=== PATIENT | female | born 1985 | race Caucasian/White ===

== ENCOUNTER → 2017-11-22 14:29 | Outpatient (CLI) | payer OTHER, SELFPAY ==
[2017-11-22 15:19] LABS: Amphetamine Urine VISTA NEGATIVE (<1000 ng/mL); Barbiturate Urine VISTA NEGATIVE (< 200 ng/mL); Benzodiazepine Urine VISTA NEGATIVE (< 200 ng/mL); Cocaine Urine VISTA NEGATIVE (< 300 ng/mL); Ecstacy Urine VISTA NEGATIVE (< 500 ng/mL); Methadone Urine VISTA NEGATIVE (< 300 ng/mL); PCP Urine VISTA NEGATIVE (< 25 ng/mL); THC Urine VISTA NEGATIVE (< 50 ng/mL); Vista UDS pH Range 5
== END ==
PROVIDERS: Visit Provider Anesthesiology Pain Medicine
DX: S83.92XA Sprain of unspecified site of left knee, initial encounter (principal); M65.862 Other synovitis and tenosynovitis, left lower leg; S83.282A Other tear of lateral meniscus, current injury, left knee, initial encounter; M76.52 Patellar tendinitis, left knee
CPT/HCPCS: 80307

== ENCOUNTER → 2018-01-06 10:08 | Outpatient (CLI) | payer OTHER, MEDICAID, SELFPAY ==
[2018-01-06 11:20] LABS: Amphetamine Urine VISTA NEGATIVE (<1000 ng/mL); Barbiturate Urine VISTA NEGATIVE (< 200 ng/mL); Benzodiazepine Urine VISTA NEGATIVE (< 200 ng/mL); Cocaine Urine VISTA NEGATIVE (< 300 ng/mL); Ecstacy Urine VISTA NEGATIVE (< 500 ng/mL); Methadone Urine VISTA NEGATIVE (< 300 ng/mL); PCP Urine VISTA NEGATIVE (< 25 ng/mL); THC Urine VISTA NEGATIVE (< 50 ng/mL); Vista UDS pH Range 5
== END ==
PROVIDERS: Visit Provider Anesthesiology Pain Medicine
DX: M76.52 Patellar tendinitis, left knee (principal); M65.862 Other synovitis and tenosynovitis, left lower leg; S83.92XA Sprain of unspecified site of left knee, initial encounter; S82.831A Other fracture of upper and lower end of right fibula, initial encounter for closed fracture; S83.282A Other tear of lateral meniscus, current injury, left knee, initial encounter
CPT/HCPCS: 80307

== ENCOUNTER → 2018-05-13 09:55 | Outpatient (CLI) | payer OTHER, MEDICAID, SELFPAY | PROVIDERS: Visit Provider Orthopaedic Surgery | DX: S83.282A Other tear of lateral meniscus, current injury, left knee, initial encounter (principal) | CPT/HCPCS: 73721 ==

== ENCOUNTER 2018-07-27 11:53 | Day surgery (SDC) | payer OTHER, SELFPAY ==
[2018-07-27 12:55] VITALS: BP 138/93; PULSE 60; RESP 16; TEMP 36.6; O2SAT 100; BMI 35.4
[2018-07-27] MEDS: Bupiv/Epi 0.5% Mpf 30 ML Vial (14:08)
[2018-07-27] MEDS: Cefazolin 2 GM in 0.9% Normal Saline 100 ML IV (14:31)
[2018-07-27] MEDS: Mupirocin Ointment 22gm Tube 1 APPLIC (15:15)
[2018-07-27 15:24] VITALS: BP 137/102; BP 138/93; PULSE 93; RESP 16; TEMP 35.9; O2SAT 94
[2018-07-27 15:30] VITALS: BP 138/93; BP 148/105; PULSE 97; RESP 16; O2SAT 100
[2018-07-27 15:45] VITALS: BP 116/91; BP 138/93; PULSE 74; RESP 16; O2SAT 93
[2018-07-27 15:53] VITALS: BP 125/92; BP 138/93; PULSE 80; RESP 16; TEMP 35.9; O2SAT 95
[2018-07-27] MEDS: HYDROcodone Bitartrate/Apap 5/325 Tablet PO (16:08)
--- NOTE | 2018-07-27 16:25 | DCINST_ITS ---
Discharge Diet: No Restrictions - remove dressings in 4 days and apply bandaids to incision sites, may get incision wet after 4 days, follow up in 2 weeks, may weight bear on operative leg Discharge Activity: May Not Drive May shower in (days): 1 Ice area for (Minutes): 20 - Every hour while awake. Weight Bearing Status: Weight bearing as tolerated Keep extremity elevated above heart level: Operative Extremity Call your doctor if your incision/area has: Continuous Slow Oozing, Sudden Increased Bleeding, Increased Pain/ Swelling, Increased Redness, Foul Smelling Discharge Call your doctor if you observe: Fever of 101 or Higher, Coldness, Increased Pain, Numbness or Tingling, Change in Color, Calf discomfort Allergies/Adverse Reactions: Allergies latex Allergy (Verified 07/20/18 08:18) Itching morphine Allergy (Verified 07/20/18 08:18) Itching promethazine HCl [From Phenergan] Allergy (Verified 07/20/18 08:18) Unknown meperidine HCl [From Demerol] Adverse Reaction (Verified 07/20/18 08:18) Chest tightness Medications to take at Discharge Ibuprofen 200 mg PO PRN PRN 07/20/18 Levothyroxine [Synthroid] 175 mcg PO DAILY 07/20/18 traMADol [Ultram (G)] 50 mg PO Q6H PRN PRN 07/20/18 Hydrocodone Bitart/Apap 5-325 [[place] 5MG-325MG] 1 - 2 tablet PO Q6H PRN PRN 5 Days #40 tablet 07/27/18 The following prescriptions were given: Hydrocodone Bitart/Apap 5-325 [[place] 5MG-325MG] 1 - 2 tablet PO Q6H PRN PRN 5 Days #40 tablet PRN Reason: Pain Primary Care Physician: Care Physician,No Primary [Primary Care Provider] - Test Results: Test results from this visit will be discussed in further detail at your follow- up appointment, if applicable. Please Follow Up With: Tsering Bernard, DO - [phone]
--- NOTE | 2018-07-27 16:25 | PCM.OPRPT ---
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 Risks benefits and alternatives surgery discussed with patient. Risks including but not limited to blood loss, blood clot, infection, neurovascular, failure procedure, loss of life and loss of limb. Patient is aware like proceed with left knee arthroscopy repair is indicated. Operative note Patient seen and examined preoperative holding area. Left leg was marked. Patient brought to the operating placed supine on the operating table. Sign, anesthesia, antibiotics were administered. The left leg was prepped and draped in usual sterile fashion. We marked out our incision for anterior lateral and anterior medial portal placement. The left leg was elevated segment and tourniquet was raised her pressure of 250 torr. We created an anterior lateral portal with an 11 blade. Began with our diagnostic arthroscopy she had a lot of scar tissue in the anterior lateral recesses we had to start with the medial joint line. Created anterior medial portal and direct visualization and then were able to use a shaver to debride back the extensive scarring that she had most of that was anterolateral. The patellofemoral joint was intact. Medial femoral condyle and her medial tibial plateau were intact stable probing her ACL PCL were present and present within the notch. Lateral meniscus had a small radial tear that was gently debrided back with combination of basket and shaver. Again she had extensive synovitis and scar tissue anterior medial anterior lateral was resected back with a shaver. The knee was then irrigated with copious amounts of sterile saline. The tourniquet was deflated for total working time of 40 minutes. Patient tolerated procedure well there are no complication transferred recovery room in stable condition. Postoperative note Weight-bear as tolerated left leg We will give family pictures in 2 weeks Pharmacy has prescription Told to ice elevate ankle pumps Call with increased pain numbness tingling or further issues arise Tatiana disclaimer This note was generated with [employer] dictation software. It may contain incorrect words, spelling, and punctuation that were not noted in checking the note before signing.
--- NOTE | 2018-07-27 16:29 | OP.PCM_ITS ---
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 Risks benefits and alternatives surgery discussed with patient. Risks including but not limited to blood loss, blood clot, infection, neurovascular, failure procedure, loss of life and loss of limb. Patient is aware like proceed with left knee arthroscopy repair is indicated. Operative note Patient seen and examined preoperative holding area. Left leg was marked. Patient brought to the operating placed supine on the operating table. Sign, anesthesia, antibiotics were administered. The left leg was prepped and draped in usual sterile fashion. We marked out our incision for anterior lateral and anterior medial portal placement. The left leg was elevated segment and tourniquet was raised her pressure of 250 torr. We created an anterior lateral portal with an 11 blade. Began with our diagnostic arthroscopy she had a lot of scar tissue in the anterior lateral recesses we had to start with the medial joint line. Created anterior medial portal and direct visualization and then were able to use a shaver to debride back the extensive scarring that she had most of that was anterolateral. The patellofemoral joint was intact. Medial femoral condyle and her medial tibial plateau were intact stable probing her ACL PCL were present and present within the notch. Lateral meniscus had a small radial tear that was gently debrided back with combination of basket and shaver. Again she had extensive synovitis and scar tissue anterior medial anterior lateral was resected back with a shaver. The knee was then irrigated with copious amounts of sterile saline. The tourniquet was deflated for total working time of 40 minutes. Patient tolerated procedure well there are no complication transferred recovery room in stable condition. Postoperative note Weight-bear as tolerated left leg We will give family pictures in 2 weeks Pharmacy has prescription Told to ice elevate ankle pumps Call with increased pain numbness tingling or further issues arise Tatiana disclaimer This note was generated with [employer] dictation software. It may contain incorrect words, spelling, and punctuation that were not noted in checking the note before signing.
[2018-07-27 16:32] VITALS: BP 126/87; BP 138/93; PULSE 69; RESP 16; TEMP 36.3; O2SAT 94
== END 2018-07-27 16:57 | disposition home or self-care (01) ==
LOC: SDC 11:54 → AC 11:55 → ACINP 12:10 → AC 12:43
PROVIDERS: Referring Provider Orthopaedic Surgery; Visit Provider Orthopaedic Surgery
PROC: (CPT 29870; principal; 2018-07-27 13:35)
DX: S83.282A Other tear of lateral meniscus, current injury, left knee, initial encounter (principal); E88.89 Other specified metabolic disorders; Z87.891 Personal history of nicotine dependence; Z85.41 Personal history of malignant neoplasm of cervix uteri; Z85.850 Personal history of malignant neoplasm of thyroid; Z79.891 Long term (current) use of opiate analgesic; Z79.899 Other long term (current) drug therapy; X58.XXXA Exposure to other specified factors, initial encounter; Y93.89 Activity, other specified; Y92.89 Other specified places as the place of occurrence of the external cause; Y99.8 Other external cause status
CPT/HCPCS: 29876; 29881; J7120; J2405

== ENCOUNTER 2018-07-30 15:07 | Emergency (ER) | payer OTHER, MEDICAID, SELFPAY ==
[2018-07-30 15:08] VITALS: BP 161/102; PULSE 78; RESP 16; TEMP 36.1; O2SAT 100; BMI 78.0
[2018-07-30 15:23] VITALS: RESP 16
--- NOTE | 2018-07-30 15:30 | RAD_ITS ---
STUDY: X-RAY - LEFT KNEE REASON FOR EXAM: Female, 33 years old. Left knee pain TECHNIQUE: 3 view(s) of the knee. COMPARISON: MRI left knee May 13, 2018 and radiograph January 04, 2017 FINDINGS: Normal visualized distal femur. Normal visualized proximal tibia and fibula. Normal proximal tibiofibular articulation. Normal medial femorotibial compartment. Normal lateral femorotibial compartment. Normal patellofemoral articulation. There is a moderate volume joint effusion. The soft tissue structures are unremarkable. RAD/Knee 3 Views IMPRESSION: Moderate suprapatellar effusion. No fracture identified. Electronically Signed: Sid Olgesby MD at 16:39 EST , Service support ,
--- NOTE | 2018-07-30 15:32 | ED.VISSUMM ---
- ER Visit Summary Date of Service: 07/30/18 Chief Complaint: Left knee pain History of Present Illness: The patient is a 33 F 3 days status post left knee arthroscopy who presents with severe left knee pain. Patient had a procedure to repair a torn medial meniscus. She has been using crutches and minimal weightbearing. She states her pain is gradually worsened, and she has not been able to control with ibuprofen and [place]. Patient has occasional numbness in the dorsum of the foot like her foot is falling asleep. She denies fever, shortness of breath, chest pain or other complaints other than the knee pain. No history of DVT or PE. Patient is a smoker. Denies any other medical history. Physical Examination: Vital signs: afebrile, hemodynamically stable, no hypoxia on room air General: well nourished, well developed, in no distress, appears uncomfortable, Skin: warm, dry, no rash, no pallor HEENT: normocephalic and atraumatic; PERRL, EOMI, moist mucous membranes Cardiovascular: regular rate and rhythm without murmurs, no peripheral edema, 2+ pulses all distal extremities Respiratory: No increased work of breathing MSK: Moves all extremities, no deformities, normal strength in right lower extremity. Left lower extremity shows a bulky Nito wrap around the left knee. Patient has sensation intact all dermatomes distal to the knee. Motor function intact but limited secondary to pain. Full extension and any flexion of the knee limited secondary to pain. Arthroscopic incisions are clean dry and intact with nonocclusive dressing over top. Diffuse tenderness to the entire knee, lateral, medial, anterior and posterior. No posterior fullness. Diffuse swelling of the knee. Tenderness to the proximal posteromedial calf without palpable cord. Neuro: Awake and alert, oriented ?4. No facial droop, sensation and motor function intact and symmetric Test Results: Medications Given Discontinued Medications Aspirin (Aspirin) 325 mg PO X1 ONE Stop: 07/30/18 18:21 Last Admin: 07/30/18 18:37 Dose: Not Given Hydromorphone HCl (Dilaudid Inj) 1 mg IM X1 ONE Stop: 07/30/18 16:41 Last Admin: 07/30/18 16:44 Dose: 1 mg Ketorolac Tromethamine (Toradol) 30 mg IM X1 ONE Stop: 07/30/18 15:31 Last Admin: 07/30/18 15:47 Dose: 30 mg Clinical Impression(s) from Imaging Studies Knee X-Ray 07/30/18 15:30 IMPRESSION: Moderate suprapatellar effusion. No fracture identified. Electronically Signed: Sid Oglesby MD at 16:39 EST , Service support , Emergency Department Course and Treatment: Patient was given IM Toradol for pain. X-ray performed of the knee and showed a suprapatellar effusion but no other abnormalities. Ultrasound currently not available to evaluate for DVT. DVT is unlikely, as the calf pain is in close approximation to patient's knee and Nito wrap, and is most likely associated with her knee complaint. Given that it is below the knee pain, patient was not started empirically on anticoagulation. She was discussed with Dr. Bernard, who requested patient be started on twice daily full dose aspirin to help prevent any DVT, as patient is not moving much since the procedure. She also recommended patient wear a Anatoliy stocking, as the compression may help with her symptoms. The Nito wrap was replaced. Patient required additional pain medication due to uncontrolled pain, and had good response to IM Dilaudid. Patient will continue her home medications and will follow up with Dr. Bernard for evaluation as scheduled. Patient was given an outpatient DVT ultrasound order and will get that done first thing Wednesday. Treatment Plan: [] Disposition: [] Impression: Postoperative left knee pain This note was generated with [employer] dictation software. It may contain incorrect words, spelling, and punctuation that were not noted in review of the chart prior to signing ED Disposition - Plan for ED Patient: Disposition: Home or Assisted Living Chief Complaint: Lower Extremity Injury Instructions: ED Post Op Pain Referrals: Tsering Bernard DO [STAFF PHYSICIAN] - 5-7 Days Care Physician,No Primary [NON-STAFF] - Additional Instructions: You have been ordered an outpatient ultrasound of the left leg to look for blood clot. Please get this done first thing Wednesday morning. In the meantime take 325 mg of aspirin twice daily to help prevent blood clots. Continue your pain medications as prescribed. Keep your follow-up appointment with Dr. Bernard. Continue all postoperative instructions that you were given by her. You may benefit from purchasing a compression stocking at the store and wearing it on your left leg below the knee. If you have any worsening of your condition or any new concerning symptoms, please return immediately to the emergency department for another evaluation.
[2018-07-30] MEDS: Ketorolac 30 MG/ML Syringe IM (15:47)
[2018-07-30] MEDS: HYDROmorphone 1 MG/ML Syringe IM (16:44)
--- NOTE | 2018-07-30 18:24 | ED.DEP ---
ED Disposition - Plan for ED Patient: Disposition: Home or Assisted Living Chief Complaint: Lower Extremity Injury Instructions: ED Post Op Pain Referrals: Care Physician,No Primary [NON-STAFF] - Tsering Bernard DO [STAFF PHYSICIAN] - 5-7 Days Additional Instructions: You have been ordered an outpatient ultrasound of the left leg to look for blood clot. Please get this done first thing Wednesday morning. In the meantime take 325 mg of aspirin twice daily to help prevent blood clots. Continue your pain medications as prescribed. Keep your follow-up appointment with Dr. Bernard. Continue all postoperative instructions that you were given by her. You may benefit from purchasing a compression stocking at the store and wearing it on your left leg below the knee. If you have any worsening of your condition or any new concerning symptoms, please return immediately to the emergency department for another evaluation.
[2018-07-30 18:37] VITALS: BP 139/97; PULSE 67; RESP 18; O2SAT 94
--- NOTE | 2018-07-30 18:39 | ED.RN ---
PT LEFT DEPARTMENT PRIOR TO RECEIVING ASPIRIN OR DISCHARGE INSTRUCTIONS. PT CALLED AND CAME BACK TO TRIAGE DESK TO GET D/C PAPERS. PT STATES SHE WILL TAKE 325 MG ASPIRIN AT HOME TONIGHT. PT AMBULATED OUT OF ED USING CRUTCHES.
== END 2018-07-30 18:41 | disposition home or self-care (01) ==
PROVIDERS: Emergency Provider Emergency Medicine; Family Provider Anesthesiology Pain Medicine; PCP Anesthesiology Pain Medicine
DX: G89.18 Other acute postprocedural pain (principal); M25.562 Pain in left knee; F17.200 Nicotine dependence, unspecified, uncomplicated; Z79.899 Other long term (current) drug therapy
CPT/HCPCS: 73562; 96372; 99282

== ENCOUNTER → 2018-08-09 10:05 | Outpatient (CLI) | payer OTHER, SELFPAY ==
[2018-07-30 15:08] VITALS: BMI 78.0
--- NOTE | 2018-08-09 10:11 | RAD_ITS ---
STUDY: X-RAY - LEFT KNEE REASON FOR EXAM: Pain after a fall, arthroscopy 2 weeks ago. TECHNIQUE: 4 view(s) of the knee. COMPARISON: Radiographs 07/30/2018. FINDINGS: Normal visualized distal femur. Normal visualized proximal tibia and fibula. Normal proximal tibiofibular articulation. Normal medial femorotibial compartment. Normal lateral femorotibial compartment. Normal patellofemoral articulation. The soft tissue structures are unremarkable. RAD/Knee 4 or More Views IMPRESSION: Unremarkable x-ray examination of the left knee without demonstrated fracture. Electronically Signed: Trenton Gilliland MD at 13:50 EST Tel , Service support ,
== END ==
PROVIDERS: Referring Provider Orthopaedic Surgery; Visit Provider Orthopaedic Surgery
DX: M25.562 Pain in left knee (principal)
CPT/HCPCS: 73564

== ENCOUNTER → 2018-10-11 12:01 | Outpatient (CLI) | payer OTHER, SELFPAY ==
--- NOTE | 2018-10-11 12:04 | MRI_ITS ---
STUDY: MRI LEFT KNEE REASON FOR EXAM: Anterior and posterior left knee pain, recent injury, 2 prior surgeries. TECHNIQUE: Standardized fat and water weighted pulse sequences were obtained in all 3 orthogonal planes. COMPARISON: MRI images 05/13/2018 and radiographs 08/09/2018. FINDINGS: Normal medial meniscus. Normal hyaline cartilage of the medial femorotibial compartment. Normal medial femoral condyle and tibial plateau. Normal medial collateral ligamentous complex (MCL). Normal distal semimembranosus, gracilis and semitendinosus tendons. There is a partial lateral meniscectomy without discrete recurrent lateral meniscal tear. Normal hyaline cartilage of the lateral femorotibial compartment. Normal lateral femoral condyle and tibial plateau. Normal proximal tibiofibular articulation. Normal lateral collateral (fibular) ligament. Normal popliteus tendon. Normal biceps femoris tendon. Normal anterior cruciate ligament (ACL). Normal posterior cruciate ligament (PCL). Normal congruent patellofemoral articulation. Normal hyaline cartilage of the patellofemoral compartment. Normal medial and lateral patellar retinaculum. Normal visualized quadriceps tendon. Normal patellar tendon. There is postoperative scarring in Hoffa's fat pad. There is a small joint effusion. The soft tissues are unremarkable. The otherwise visualized osseous structures are unremarkable. MRI/Lower Ext Joint Only (Routine) IMPRESSION: Partial lateral meniscectomy without demonstrated recurrent meniscal tear. Small joint effusion. Otherwise, unremarkable postoperative MRI of the left knee. Electronically Signed: Trenton Gilliland MD at 15:48 EST Tel , Service support ,
--- OUTSIDE RECORDS SUMMARY | 2018-12-13 15:54 | XMS RPT_ITS ---
:1985 Author Organization OHIP Support Name Relationship Address Phone CHOLO WALTER Unavailable [address] + [place] [address] [facility] Unavailable [address] + [place] [address] CHOLO WALTER Unavailable [address] + [place] [address] [facility] Unavailable [address] + [place] [address] [facility] Unavailable [address] + [place] [address] [facility] Unavailable [address] + [place] [address] CHOLO WALTER Unavailable [address] + [place] [address] [facility] Unavailable [address] + [place] [address] CHOLO WALTER Unavailable [address] + [place] [address] [facility] Unavailable [address] + [place] [address] CHOLO WALTER Unavailable [address] + [place] [address] [facility] Unavailable [address] + [place] [address] CHOLO WALTER Unavailable [address] + [place] [address] [facility] Unavailable [address] + [place] [address] CHOLO WALTER Unavailable [address] + [place] [address] [facility] [address] + [place] [address] SABA CHOLO Unavailable [address] + [place] [address] [facility] Unavailable [address] + [place] [address] SABA, CHOLO Unavailable [address] + [place] [address] [facility] Un[address] + [place] [address] EICKAITLYNN, CHOLO Unavailable [address] + [place] [address] [facility] Un[address] + [place] [address] EICKAITLYNN, CHOLO Unavailable [address] + [place] [address] [facility] Unavailable [address] + [place] [address] EICKAITLYNN, CHOLO Unavailable [address] + [place] [address] [facility] Unavailable [address] + [place] [address] EICKAITLYNN, CHOLO Unavailable [address] + [place] [address] [facility] Unavailable [address] + [place] [address] EICKAITLYNN, CHOLO Unavailable [address] + [place] [address] [facility] Unavailable [address] + [place] [address] Care Team Providers Name Role Phone Maxx Bowles Attending Unavailable Primay Care Physicia, No Referring Unavailable Maxx Bowles Attending Unavailable Maxx Bowles Referring Unavailable Primay Care Physicia, No Primary Care Unavailable Tra Schwartz Attending Unavailable Tra Schwartz Referring Unavailable Primay Care Physicia, No Primary Care Unavailable Tra Schwartz Attending Unavailable Tra Schwartz Referring Unavailable Primay Care Physicia, No Primary Care Unavailable Tra Schwartz Attending Unavailable Tra Schwartz Referring Unavailable Primay Care Physicia, No Primary Care Unavailable Tsering Bernard Attending Unavailable Primay Care Physicia, No Referring Unavailable Primay Care Physicia, No Primary Care Unavailable Tsering Bernard Attending Unavailable Tsering Bernard Referring Unavailable Primay Care Physicia, No Primary Care Unavailable Chicorelli, Tsering Attending Unavailable Primay Care Physicia, No Referring Unavailable Chicorelli, Tsering Attending Unavailable Primay Care Physicia, No Referring Unavailable Chicorelli, Tsering Attending Unavailable Chicorelli, Tsering Referring Unavailable Primay Care Physicia, No Primary Care Unavailable Elizabeth Archibald Attending Unavailable GaurangiTra Primary Care Unavailable Chicorelli, Tsering Attending Unavailable Chicorelli, Tsering Referring Unavailable Primay Care Physicia, No Primary Care Unavailable Basali, Ayman Consulting Unavailable Chicorelli, Tsering Attending Unavailable Primay Care Physicia, No Referring Unavailable Chicorelli, Tsering Attending Unavailable Chicorelli, Tsering Referring Unavailable Primay Care Physicia, No Primary Care Unavailable Chicorelli, Tsering Attending Unavailable AMRIK FONTENOT Consulting Unavailable TEATER, JESSICA Nichole Attending Unavailable MUKESH GALLEGO Consulting Unavailable JESSICA VALENTIN Attending Unavailable JESSICA VALENTIN Attending Unavailable LESIA JOAQUIN Consulting Unavailable JESSICA VALENTIN Attending Unavailable SID CRUZ Consulting Unavailable DEEPAK WHITTINGTON Consulting Unavailable PROBLEMS PROBLEMS DATE TYPE CONDITION / CODE ATTENDING STATUS SOURCE 08/09/2018 Unknown M25.562 - Pain in [facility], Active [place] left knee / [facility] M25.562(ICD-10) Hospital Repository 07/27/2018 Unknown G89.18 - Other acute [facility], Active [place] postprocedural pain [facility] / G89.18(ICD-10) Hospital Repository 06/20/2018 Unknown S83.282A - Other [facility], Active [place] tear of lateral [facility] meniscus, current Hospital injury, left knee, Repository initial encounter / S83.282A(ICD-10) 11/22/2017 Unknown M65.862 - Other Basali, Ayman Active [place] synovitis and [facility] tenosynovitis, left Hospital lower leg / Repository M65.862(ICD-10) 11/22/2017 Unknown M76.52 - Patellar Basali, Ayman Active [place] tendinitis, left [facility] knee / Hospital M76.52(ICD-10) Repository 11/19/2017 Admitting Unknown / NA Active [facility] diagnosis UNK(Unknown) Hospital Repository PROCEDURES PROCEDURES No Procedure Records FoundRESULTS RESULTS LOWER EXT JOINT ONLY Observed: 10/11/2018 Status: F Source: [place] (ROUTINE) 12:04 PM [facility] REPOSITORY [facility] Imaging Services [address] [place] [address] Lower Ext Joint Only (Routine) MR#: [id number] Acct: [id number] Name: SULLY WALTER Rep #: [id number] : 1985 F 33 From: Trenton Gilliland MD PCP: Care Physician, No Primary Status: REG CLI Study: Lower Ext Joint Only (Routine) Date of Exam: 10/11/18 Exam# [id number] Ordering Dr: Maxx Bowles STUDY: MRI LEFT KNEE REASON FOR EXAM: Anterior and posterior left knee pain, recent injury, 2 prior surgeries. TECHNIQUE: Standardized fat and water weighted pulse sequences were obtained in all 3 orthogonal planes. COMPARISON: MRI images 05/13/2018 and radiographs 08/09/2018. FINDINGS: Normal medial meniscus. Normal hyaline cartilage of the medial femorotibial compartment. Normal medial femoral condyle and tibial plateau. Normal medial collateral ligamentous complex (MCL). Normal distal semimembranosus, gracilis and semitendinosus tendons. There is a partial lateral meniscectomy without discrete recurrent lateral meniscal tear. Normal hyaline cartilage of the lateral femorotibial compartment. Normal lateral femoral condyle and tibial plateau. Normal proximal tibiofibular articulation. Normal lateral collateral (fibular) ligament. Normal popliteus tendon. Normal biceps femoris tendon. Normal anterior cruciate ligament (ACL). Normal posterior cruciate ligament (PCL). Normal congruent patellofemoral articulation. Normal hyaline cartilage of the patellofemoral compartment. Normal medial and lateral patellar retinaculum. Normal visualized quadriceps tendon. Normal patellar tendon. There is postoperative scarring in Hoffa's fat pad. There is a small joint effusion. The soft tissues are unremarkable. The otherwise visualized osseous structures are unremarkable. MRI/Lower Ext Joint Only (Routine) IMPRESSION: Partial lateral meniscectomy without demonstrated recurrent meniscal tear. Small joint effusion. Otherwise, unremarkable postoperative MRI of the left knee. Electronically Signed: Trenton Gilliland MD at 15:48 EST Tel , Service support , CC: No Primary Care Physician; LUIS Bowles Textile Machine Operator: Signed ORTHOPEDIC VISIT Observed: 09/22/2018 Status: F Source: [place] REPORT 1:53 PM [facility] REPOSITORY [facility] Orthopaedics AND Sports Medicine [address] [place] [address] OFFICE VISIT Date of Service: 09/22/18 MR#: [id number] Acct: [id number] Name: SULLY WALTER Rep #: [id number] : 1985 Provider: LUIS Bowles Age/Sex: 33/F Location: [facility] [facility] [place] Status: Signed Intake Intake Visit Reasons: LEFT KNEE Allergies latex Allergy (Verified 07/30/18 15:10) Itching morphine Allergy (Verified 07/30/18 15:10) Itching promethazine HCl [From Phenergan] Allergy (Verified 07/30/18 15:10) Unknown meperidine HCl [From Demerol] Adverse Reaction (Verified 07/30/18 15:10) Chest tightness Medications Ibuprofen 200 mg PO PRN PRN 07/20/18 [History Confirmed 07/30/18] Levothyroxine [Synthroid] 175 mcg PO DAILY 07/20/18 [History Confirmed 07/30/18] PFSH Social History Smoking Status: Current every day smoker HPI LEFT KNEE: Details: SULLY WALTER is a 33 year old F here today for f/u on left knee 07/27/18 surgery, she complains of swelling, pain and locking. She fell a few weeks after her surgery and her pain has been bad ever since. She denies any brace but is using an nito bandage for comfort, patient does remain off work. Denies numbness, tingling or other associated symptoms. Ortho Exam Left Knee Contralateral Normal: Yes Swelling: No Homans Sign: No Knee ROM: Yes ROM-Extension -20 to 0, Yes ROM-Flexion 0-140 Examination: Yes med jt line tenderness, Yes Pain with flexion, Yes Yoko's Test, Yes Lat jt line tenderness (minimal), No TTP inf pole patella, Yes Crepitus Quad Atrophy: No Stability: NML: Anterior Drawer, NML: Cheo, NML: Posterior Drawer, NML: Valgus 30, NML: Varus 30 Popliteal Adenopathy: No KNEE: Patient has no evident abnormalities on inspection of the knee. There is no localized or generalized swelling and no knee effusion. She does have evident tenderness on the medial joint line this is a very minor tenderness on the lateral joint line. She has pain with full flexion and a positive Yoko's test. ACL, PCL, and collateral ligaments appear intact without laxity or pain on maneuvers. Assessment AND Plan Problems 1. Sprain of left knee, unspecified ligament, subsequent encounter S83.92XD 2. Tear of lateral meniscus of left knee, unspecified tear type, unspecified whether old or current tear, subsequent encounter S83.282D Plan Patient has continued to have knee pains postoperative. The pain is really no started after she fell several weeks after her surgery. Today in the office she has evident medial joint line tenderness with minimal lateral joint line tenderness. She has a positive Yoko's test as well as pain with flexion. She does describe some locking of the knee as well as some instability. At this time she is completed physical therapy without improvement. At this time we are going to put him to have an MRI for evaluation of the medial meniscus. Patient is already seeing pain management and will talk with him about putting in for a another knee injection as the insurance was waiting to see how she is a little postop before approving another injection. We will see her back in the office following the MRI to go over the images. Patient is to continue to ice and use anti-inflammatories and can try topical treatments. She is to notify of increasing pain, increasing swelling, or any other symptoms in the meantime. This note was generated with [employer] software. It may contain incorrect words, spelling, and punctuation that were not noted in checking the note before signing. Coding Level of Care Code Global Post Op Diagnoses Sprain of left knee, unspecified ligament, subsequent encounter S83.92XD Encounter type: subsequent encounter Involved ligament of knee: unspecified ligament Tear of lateral meniscus of left knee, unspecified tear type, unspecified whether old or current tear, subsequent encounter S83.282D Tear current or old: unspecified Encounter type: subsequent encounter Meniscus tear of knee type: unspecified type 09/22/18 1353 <Electronically signed by Maxx SMITH> Date Maxx SMITH Cosigner Signature: Date (if applicable) CC: ORTHOPEDIC VISIT Observed: 08/16/2018 Status: F Source: [place] REPORT 10:35 [facility] REPOSITORY [facility] Orthopaedics AND Sports Medicine [address] [place] [address] OFFICE VISIT Date of Service: 08/09/18 MR#: [id number] Acct: [id number] Name: SULLY WALTER Rep #: [id number] : 1985 Provider: Tsering Bernard DO Age/Sex: 33/F Location: [facility] [place] [place] Status: Signed Intake Intake Visit Reasons: LEFT KNEE Is patient in pain?: Yes Allergies latex Allergy (Verified 07/30/18 15:10) Itching morphine Allergy (Verified 07/30/18 15:10) Itching promethazine HCl [From Phenergan] Allergy (Verified 07/30/18 15:10) Unknown meperidine HCl [From Demerol] Adverse Reaction (Verified 07/30/18 15:10) Chest tightness Medications Ibuprofen 200 mg PO PRN PRN 07/20/18 [History Confirmed 07/30/18] Levothyroxine [Synthroid] 175 mcg PO DAILY 07/20/18 [History Confirmed 07/30/18] PFSH Social History Smoking Status: Current every day smoker HPI LEFT KNEE: Details: SULLY WALTER is a 33 year old F here today for f/u left knee scope 07/27. She was doing great and walking normally until she fell three days ago tripping up the steps. She did go to [facility] and they did xrays that were negative for patella fracture. She has swelling and pain with flexion, painful patella today. Denies numbness, tingling or other associated symptoms. She is using tramadol and ibuprofen for pain, icing prn. Ortho Exam Left Knee Date of Surgery: 07/27/18 Skin/Wound: Yes CDI, Yes healing, Yes suture/may removed Contralateral Normal: Yes Swelling: Yes Homans Sign: No 1+: Effusion Knee ROM: Yes ROM-Extension -20 to 0, No ROM-Flexion 0-140, Yes ROM-Passive Extension -10 to 0, No ROM-Passive Flexion 0-140 Examination: Yes med jt line tenderness, Yes Lat jt line tenderness, Yes TTP inf pole patella, Yes Crepitus, Yes Pain with flexion Stability: NML: Anterior Drawer, NML: Cheo, NML: Posterior Drawer, NML: Valgus 0, NML: Valgus 30, NML: Varus 0, NML: Varus 30, NML: Dial 90, NML: Dial 30 Apprehension with Lateral Translation: Yes Patella Grind: Yes Assessment AND Plan Problems 1. Orthopedic aftercare Z47.89 2. Patellar pain M25.569 Plan xrays left knee show no obvious fracture, dislocation or lucency. pain localized around kneecap and medial side most likely from bone bruise. start PT to see if can decrease effusion and increase ROM. gave PT script, continue ice and will prescribe mobic daily for inflammation. Instructed to use an otc sleeve with a patella cut out. walk and move as tolerated. Follow up in a month or sooner if pain, swelling, numbness or associated symptoms, or concerns develop. All questions answered. Patient in agreement of plan. Personally reviewed the surgical images if available, the surgery procedure and reviewed the post op care instructions. Monitor for signs of infection, redness, warmth, swelling in excess, drainage, opening of incision site/sites, and/or fever. Orders Orders: Coding Level of Care Code Off vis,est,level 4 Diagnoses Orthopedic aftercare Z47.89 Patellar pain M25.569 08/16/18 1035 <Electronically signed by Tsering Bernard DO> Date Tsering Bernard DO Cosigner Signature: Date (if applicable) CC: KNEE 4 OR MORE Observed: 08/09/2018 Status: F Source: [place] VIEWS 10:11 [facility] REPOSITORY [facility] Imaging Services [address] [place] [address] Knee 4 or More Views MR#: [id number] Acct: [id number] Name: SULLY WALTER Rep #: [id number] : 1985 F 33 From: Trenton Gilliland MD PCP: Care Physician, No Primary Status: REG CLI Study: Knee 4 or More Views Date of Exam: 08/09/18 Exam# [id number] Ordering Dr: Tsering Bernard DO STUDY: X-RAY - LEFT KNEE REASON FOR EXAM: Pain after a fall, arthroscopy 2 weeks ago. TECHNIQUE: 4 view(s) of the knee. COMPARISON: Radiographs 07/30/2018. FINDINGS: Normal visualized distal femur. Normal visualized proximal tibia and fibula. Normal proximal tibiofibular articulation. Normal medial femorotibial compartment. Normal lateral femorotibial compartment. Normal patellofemoral articulation. The soft tissue structures are unremarkable. RAD/Knee 4 or More Views IMPRESSION: Unremarkable x-ray examination of the left knee without demonstrated fracture. Electronically Signed: Trenton Gilliland MD at 13:50 EST Tel , Service support , CC: No Primary Care Physician; Tsering Bernard DO Textile Machine Operator: Signed ED PROV NOTE Observed: 08/08/2018 Status: COMPLETED Source: [place] 10:41 AM [facility] REPOSITORY O ID: [id number] Author: Deepak Whittington Service: (none) Author Type: Physician Type: ED Provider Notes Filed: 08/20/2018 10:42 AM Note Text: [facility] [place] [facility] [place] [address] HEALTH INFORMATION MANAGEMENT EMERGENCY DEPARTMENT REPORT Patient: SULLY WALTER DEEPAK WHITTINGTON M.D. [id number] 33 F Status: DEP ER ED Date of Service: 08/07/18 CHIEF COMPLAINT Knee pain. HISTORY OF PRESENT ILLNESS The patient is a 33-year-old female brought in today with the above complaint. She just had meniscus surgery done this past week, was supposed to get her stitches taken out on Wednesday, in the meantime tripped and fell onto the knee today. She says she has a lot of pain in the knee n PAST MEDICAL AND SURGICAL HISTORY The knee surgery, hypothyroidism, cholecystectomy, hysterectomy, appendectomy, hypertension, COPD, diabetes. MEDICATIONS As listed. ALLERGIES As listed. FAMILY HISTORY AND SOCIAL HISTORY Noncontributory. PHYSICAL EXAMINATION General: A well-developed, well-nourished female who is awake, alert, currently not in acute distress. Vitals: As charted. HEENT: Atraumatic, normocephalic. Oropharynx is moist. Neck is supple. No adenopathy, thyromegaly, no JVD. Cardiovascular: Regular rate and rhythm. No murmurs, rubs, gallop. Lungs are clear to auscultation bilaterally. Abdomen: Soft, nondistended. Extremities: No clubbing, cyanosis. There is tenderness palpation around the knee. Stitches are still in place. There is a small palpable effusion. She is fairly tender and I cannot really do a ligamentous instability exam, but she has tenderness over the patella itself and over the lateral medial joint line. EMERGENCY DEPARTMENT COURSE Did x-ray evaluation of the knee which is negative for fracture. CLINICAL DIAGNOSIS Knee pain. PLAN She is going to be discharged home, rest, ice and Motrin, crutches, weightbearing as tolerated, Nito wrap, and should follow up with the orthopedist on Wednesday. <Electronically signed by DEEPAK WHITTINGTON M.D.> 08/20/18 1027 DEEPAK WHITTINGTON M.D. cc: DEEPAK WHITTINGTON M.D.; [facility] DEPT << Signature on File>> Reported By: DEEPAK WHITTINGTON M.D. Signed By: DEEPAK WHITTINGTON M.D. Tests performed at: [address] [address] EMERGENCY DEPARTMENT Observed: 08/08/2018 Status: F Source: [place] REPORT 10:41 AM [facility] [place] [address] HEALTH INFORMATION MANAGEMENT EMERGENCY DEPARTMENT REPORT Patient: SULLY WALTER DEEPAK WHITTINGTON M.D. [id number] 83 33 F Status: DEP ER ED Date of Service: 08/07/18 CHIEF COMPLAINT Knee pain. HISTORY OF PRESENT ILLNESS The patient is a 33-year-old female brought in today with the above complaint. She just had meniscus surgery done this past week, was supposed to get her stitches taken out on Wednesday, in the meantime tripped and fell onto the knee today. She says she has a lot of pain in the knee n PAST MEDICAL AND SURGICAL HISTORY The knee surgery, hypothyroidism, cholecystectomy, hysterectomy, appendectomy, hypertension, COPD, diabetes. MEDICATIONS As listed. ALLERGIES As listed. FAMILY HISTORY AND SOCIAL HISTORY Noncontributory. PHYSICAL EXAMINATION General: A well-developed, well-nourished female who is awake, alert, currently not in acute distress. Vitals: As charted. HEENT: Atraumatic, normocephalic. Oropharynx is moist. Neck is supple. No adenopathy, thyromegaly, no JVD. Cardiovascular: Regular rate and rhythm. No murmurs, rubs, gallop. Lungs are clear to auscultation bilaterally. Abdomen: Soft, nondistended. Extremities: No clubbing, cyanosis. There is tenderness palpation around the knee. Stitches are still in place. There is a small palpable effusion. She is fairly tender and I cannot really do a ligamentous instability exam, but she has tenderness over the patella itself and over the lateral medial joint line. EMERGENCY DEPARTMENT COURSE Did x-ray evaluation of the knee which is negative for fracture. CLINICAL DIAGNOSIS Knee pain. PLAN She is going to be discharged home, rest, ice and Motrin, crutches, weightbearing as tolerated, Nito wrap, and should follow up with the orthopedist on Wednesday. <Electronically signed by DEEPAK WHITTINGTON M.D.> 08/20/18 1027 DEEPAK WHITTINGTON M.D. cc: DEEPAK WHITTINGTON M.D.; [facility] DEPT << Signature on File>> Reported By: DEEPAK WHITTINGTON M.D. Signed By: DEEPAK WHITTINGTON M.D. Tests performed at: [address] [address] KNEE INJURY (4+ Observed: 08/07/2018 Status: F Source: [facility] VIEWS) 7:42 PM HOSPITAL REPOSITORY [address] [address] Name: SULLY WALTER Phys: DEEPAK WHITTINGTON M.D. : [birth year] Age: 33 Sex: F Acct: [id number] Loc: ED Exam Date: 08/07/18 Status: DEP ER Radiology No.: [id number] Unit Number: [id number] Exam # Type/Exam [id number] RAD / KNEE INJURY (4+ VIEWS) LT PROCEDURE: Left knee radiographs. HISTORY: Pain after injury. COMPARISON: 08/26/2017 FINDINGS: 4 views obtained. No visible fracture or dislocation. There is mild medial compartment joint space narrowing. No bony lesions are identified. Soft tissues are unremarkable. IMPRESSION: No visible fracture or dislocation. Professional interpretation provided by [facility], [place] on [id number]. Thank you for this referral. <<Signature on File>> Reported By: TIFFANI FLORES M.D. Signed In NovaPro By: TIFFANI FLORES M.D. << Signature on File>> Reported By: TIFFANI FLORES M.D. Signed By: TIFFANI FLORES M.D. Tests performed at: [place] [id number] [place], [place] [address] EMERGENCY DEPARTMENT Observed: 07/30/2018 Status: F Source: [place] SUMMARY 11:19 PM [facility] REPOSITORY [facility] Medical Records Department [address] [place] [address] Emergency Department Summary 07/30/18 1532 MR#: [id number] Acct: [id number] Name: SULLY WALTER Rep #: [id number] : 1985 33 From: Elizabeth Archibald MD PCP: Tra Schwartz MD Status: DEP ER - ER Visit Summary Date of Service: 07/30/18 Chief Complaint: Left knee pain History of Present Illness: The patient is a 33 F 3 days status post left knee arthroscopy who presents with severe left knee pain. Patient had a procedure to repair a torn medial meniscus. She has been using crutches and minimal weightbearing. She states her pain is gradually worsened, and she has not been able to control with ibuprofen and [place]. Patient has occasional numbness in the dorsum of the foot like her foot is falling asleep. She denies fever, shortness of breath, chest pain or other complaints other than the knee pain. No history of DVT or PE. Patient is a smoker. Denies any other medical history. Physical Examination: Vital signs: afebrile, hemodynamically stable, no hypoxia on room air General: well nourished, well developed, in no distress, appears uncomfortable, Skin: warm, dry, no rash, no pallor HEENT: normocephalic and atraumatic; PERRL, EOMI, moist mucous membranes Cardiovascular: regular rate and rhythm without murmurs, no peripheral edema, 2+ pulses all distal extremities Respiratory: No increased work of breathing MSK: Moves all extremities, no deformities, normal strength in right lower extremity. Left lower extremity shows a bulky Nito wrap around the left knee. Patient has sensation intact all dermatomes distal to the knee. Motor function intact but limited secondary to pain. Full extension and any flexion of the knee limited secondary to pain. Arthroscopic incisions are clean dry and intact with nonocclusive dressing over top. Diffuse tenderness to the entire knee, lateral, medial, anterior and posterior. No posterior fullness. Diffuse swelling of the knee. Tenderness to the proximal posteromedial calf without palpable cord. Neuro: Awake and alert, oriented 4. No facial droop, sensation and motor function intact and symmetric Test Results: Medications Given Discontinued Medications Aspirin (Aspirin) 325 mg PO X1 ONE Stop: 07/30/18 18:21 Last Admin: 07/30/18 18:37 Dose: Not Given Hydromorphone HCl (Dilaudid Inj) 1 mg IM X1 ONE Stop: 07/30/18 16:41 Last Admin: 07/30/18 16:44 Dose: 1 mg Ketorolac Tromethamine (Toradol) 30 mg IM X1 ONE Stop: 07/30/18 15:31 Last Admin: 07/30/18 15:47 Dose: 30 mg Clinical Impression(s) from Imaging Studies Knee X-Ray 07/30/18 15:30 IMPRESSION: Moderate suprapatellar effusion. No fracture identified. Electronically Signed: Sid Oglesby MD at 16:39 EST , Service support , Emergency Department Course and Treatment: Patient was given IM Toradol for pain. X-ray performed of the knee and showed a suprapatellar effusion but no other abnormalities. Ultrasound currently not available to evaluate for DVT. DVT is unlikely, as the calf pain is in close approximation to patient's knee and Nito wrap, and is most likely associated with her knee complaint. Given that it is below the knee pain, patient was not started empirically on anticoagulation. She was discussed with Dr. Bernard, who requested patient be started on twice daily full dose aspirin to help prevent any DVT, as patient is not moving much since the procedure. She also recommended patient wear a Anatoliy stocking, as the compression may help with her symptoms. The Nito wrap was replaced. Patient required additional pain medication due to uncontrolled pain, and had good response to IM Dilaudid. Patient will continue her home medications and will follow up with Dr. Bernard for evaluation as scheduled. Patient was given an outpatient DVT ultrasound order and will get that done first thing Wednesday. Treatment Plan: [] Disposition: [] Impression: Postoperative left knee pain This note was generated with [employer] dictation software. It may contain incorrect words, spelling, and punctuation that were not noted in review of the chart prior to signing ED Disposition - Plan for ED Patient: Disposition: Home or Assisted Living Chief Complaint: Lower Extremity Injury Instructions: ED Post Op Pain Referrals: Tsering Bernard DO [STAFF PHYSICIAN] - 5-7 Days Care Physician,No Primary [NON-STAFF] - Additional Instructions: You have been ordered an outpatient ultrasound of the left leg to look for blood clot. Please get this done first thing Wednesday morning. In the meantime take 325 mg of aspirin twice daily to help prevent blood clots. Continue your pain medications as prescribed. Keep your follow-up appointment with Dr. Bernard. Continue all postoperative instructions that you were given by her. You may benefit from purchasing a compression stocking at the store and wearing it on your left leg below the knee. If you have any worsening of your condition or any new concerning symptoms, please return immediately to the emergency department for another evaluation. What to do if you have Problems For any increased pain, shortness of breath, bleeding, nausea or vomiting, chest pain, or any unexpected problems, contact your Primary Care Provider. Call [employer] [facility] ([phone]) or report to the closest Emergency Room. Call 911 if necessary. 07/30/18 9617 <Electronically signed by Elizabeth Archibald MD> Date Elizabeth Archibald MD Cosigner Signature (If Indicated): Date CC: Tra Schwartz MD DISCHARGE INSTRUCTION Observed: 07/30/2018 Status: F Source: [place] 10:33 PM [facility] REPOSITORY [facility] Medical Records Department [address] [place] [address] Discharge Instruction 07/30/18 1824 MR#: [id number] Acct: [id number] Name: SULLY WALTER Rep #: [id number] : 1985 33 From: Elizabeth Archibald MD PCP: Tra Schwartz MD Status: DEP ER ED Disposition - Plan for ED Patient: Disposition: Home or Assisted Living Chief Complaint: Lower Extremity Injury Instructions: ED Post Op Pain Referrals: Care Physician,No Primary [NON-STAFF] - Tsering Bernard DO [STAFF PHYSICIAN] - 5-7 Days Additional Instructions: You have been ordered an outpatient ultrasound of the left leg to look for blood clot. Please get this done first thing Wednesday morning. In the meantime take 325 mg of aspirin twice daily to help prevent blood clots. Continue your pain medications as prescribed. Keep your follow-up appointment with Dr. Bernard. Continue all postoperative instructions that you were given by her. You may benefit from purchasing a compression stocking at the store and wearing it on your left leg below the knee. If you have any worsening of your condition or any new concerning symptoms, please return immediately to the emergency department for another evaluation. What to do if you have Problems For any increased pain, shortness of breath, bleeding, nausea or vomiting, chest pain, or any unexpected problems, contact your Primary Care Provider. Call [employer] [facility] ([phone]) or report to the closest Emergency Room. Call 911 if necessary. 07/30/18 0476 <Electronically signed by Elizabeth Archibald MD> Date Elizabeth Archibald MD Cosigner Signature (If Indicated): Date CC: Tra Schwartz MD KNEE 3 VIEWS Observed: 07/30/2018 Status: F Source: [place] 3:31 PM [facility] REPOSITORY [facility] Imaging Services [address] [place] [address] Knee 3 Views MR#: [id number] Acct: [id number] Name: SULLY WALTER Rep #: [id number] : 1985 F 33 From: Sid Oglesby MD PCP: Tra Schwartz MD Status: REG ER Study: Knee 3 Views Date of Exam: 07/30/18 Exam# [id number] Ordering Dr: Elizabeth Archibald MD STUDY: X-RAY - LEFT KNEE REASON FOR EXAM: Female, 33 years old. Left knee pain TECHNIQUE: 3 view(s) of the knee. COMPARISON: MRI left knee May 13, 2018 and radiograph January 04, 2017 FINDINGS: Normal visualized distal femur. Normal visualized proximal tibia and fibula. Normal proximal tibiofibular articulation. Normal medial femorotibial compartment. Normal lateral femorotibial compartment. Normal patellofemoral articulation. There is a moderate volume joint effusion. The soft tissue structures are unremarkable. RAD/Knee 3 Views IMPRESSION: Moderate suprapatellar effusion. No fracture identified. Electronically Signed: Sid Oglesby MD at 16:39 EST , Service support , CC: Tra Schwartz MD; Elizabeth Archibald MD Textile Machine Operator: Signed OPERATIVE REPORT Observed: 07/28/2018 Status: F Source: [place] 5:06 PM [facility] REPOSITORY [facility] Medical Records Department [address] [place] [address] Operative Report 07/27/18 1625 MR#: [id number] Acct: [id number] Name: SULLY WALTER Rep #: [id number] : 1985 33 From: Tsering Bernard DO PCP: Care Physician, No Primary Status: [facility] Location: [facility] [place] Report of Operation Date of Procedure: 07/27/18 Pre-Operative Diagnosis: left lateral meniscus tear, 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 Risks benefits and alternatives surgery discussed with patient. Risks including but not limited to blood loss, blood clot, infection, neurovascular, failure procedure, loss of life and loss of limb. Patient is aware like proceed with left knee arthroscopy repair is indicated. Operative note Patient seen and examined preoperative holding area. Left leg was marked. Patient brought to the operating placed supine on the operating table. Sign, anesthesia, antibiotics were administered. The left leg was prepped and draped in usual sterile fashion. We marked out our incision for anterior lateral and anterior medial portal placement. The left leg was elevated segment and tourniquet was raised her pressure of 250 torr. We created an anterior lateral portal with an 11 blade. Began with our diagnostic arthroscopy she had a lot of scar tissue in the anterior lateral recesses we had to start with the medial joint line. Created anterior medial portal and direct visualization and then were able to use a shaver to debride back the extensive scarring that she had most of that was anterolateral. The patellofemoral joint was intact. Medial femoral condyle and her medial tibial plateau were intact stable probing her ACL PCL were present and present within the notch. Lateral meniscus had a small radial tear that was gently debrided back with combination of basket and shaver. Again she had extensive synovitis and scar tissue anterior medial anterior lateral was resected back with a shaver. The knee was then irrigated with copious amounts of sterile saline. The tourniquet was deflated for total working time of 40 minutes. Patient tolerated procedure well there are no complication transferred recovery room in stable condition. Postoperative note Weight-bear as tolerated left leg We will give family pictures in 2 weeks Pharmacy has prescription Told to ice elevate ankle pumps Call with increased pain numbness tingling or further issues arise Dragon disclaimer This note was generated with [employer] dictation software. It may contain incorrect words, spelling, and punctuation that were not noted in checking the note before signing. 07/28/18 1706 <Electronically signed by Tsering Bernard DO> Date Tsering Bernard DO CC: No Primary Care Physician; Tsering Bernard DO Signed DISCHARGE INSTRUCTION Observed: 07/27/2018 Status: F Source: [place] 4:25 PM [facility] REPOSITORY [facility] Medical Records Department [address] [place] [address] Instructions for Home/Discharge Instructions 07/27/18 1624 MR#: [id number] Acct: [id number] Name: SULLY WALTER Rep #: [id number] : 1985 33 From: Tsering Bernard DO PCP: Care Physician, No Primary Status: REG SDC Discharge Diet: No Restrictions - remove dressings in 4 days and apply bandaids to incision sites, may get incision wet after 4 days, follow up in 2 weeks, may weight bear on operative leg Discharge Activity: May Not Drive May shower in (days): 1 Ice area for (Minutes): 20 - Every hour while awake. Weight Bearing Status: Weight bearing as tolerated Keep extremity elevated above heart level: Operative Extremity Call your doctor if your incision/area has: Continuous Slow Oozing, Sudden Increased Bleeding, Increased Pain/ Swelling, Increased Redness, Foul Smelling Discharge Call your doctor if you observe: Fever of 101 or Higher, Coldness, Increased Pain, Numbness or Tingling, Change in Color, Calf discomfort Allergies/Adverse Reactions: Allergies latex Allergy (Verified 07/20/18 08:18) Itching morphine Allergy (Verified 07/20/18 08:18) Itching promethazine HCl [From Phenergan] Allergy (Verified 07/20/18 08:18) Unknown meperidine HCl [From Demerol] Adverse Reaction (Verified 07/20/18 08:18) Chest tightness Medications to take at Discharge Ibuprofen 200 mg PO PRN PRN 07/20/18 Levothyroxine [Synthroid] 175 mcg PO DAILY 07/20/18 traMADol [Ultram (G)] 50 mg PO Q6H PRN PRN 07/20/18 Hydrocodone Bitart/Apap 5-325 [[place] 5MG-325MG] 1 - 2 tablet PO Q6H PRN PRN 5 Days #40 tablet 07/27/18 The following prescriptions were given: Hydrocodone Bitart/Apap 5-325 [[place] 5MG-325MG] 1 - 2 tablet PO Q6H PRN PRN 5 Days #40 tablet PRN Reason: Pain Primary Care Physician: Care Physician,No Primary [Primary Care Provider] - Test Results: Test results from this visit will be discussed in further detail at your follow-up appointment, if applicable. Please Follow Up With: Tsering Bernard DO - [phone] 07/27/18 6348 <Electronically signed by Tsering Bernard DO> Date Tsering Bernard DO CC: No Primary Care Physician ORTHOPEDIC VISIT Observed: 07/14/2018 Status: F Source: [place] REPORT 1:24 PM [facility] REPOSITORY [facility] Orthopaedics AND Sports Medicine [address] [place] [address] OFFICE VISIT Date of Service: 07/14/18 MR#: [id number] Acct: [id number] Name: SULLY WALTER Rep #: [id number] : 1985 Provider: Tsering Bernard DO Age/Sex: 32/F Location: [facility] [place] [place] Status: Signed Intake Intake Visit Reasons: LEFT KNEE Is patient in pain?: Yes Allergies latex Allergy (Verified 07/14/18 12:35) Itching morphine Allergy (Verified 07/14/18 12:35) Itching promethazine HCl [From Phenergan] Allergy (Verified 07/14/18 12:35) Unknown meperidine HCl [From Demerol] Adverse Reaction (Verified 07/14/18 12:35) Chest tightness Medications lidocaine HCl 5 %-menthol 1 % topical patch patch TOPICAL 06/20/18 [History Confirmed 06/20/18] PFSH Social History Smoking Status: Former smoker HPI LEFT KNEE: Details: SULLY WALTER is a 32 year old F here today for left knee pain. Patient notes that she continues to have left knee pain. Patient notes that she has been seeing Dr Schwartz for steroid injections which is making her pain worse. Her pain is over her anterior knee and posterior knee. She continues to have swelling. Patient notes that she has popping, clicking and instability. She is not working currently. She got a C9 approval for surgery. ROS Const Reports system reviewed and no additional complaints, except as docu Eyes Reports system reviewed and no additional complaints, except as docu ENT Reports system reviewed and no additional complaints, except as docu Card Reports system reviewed and no additional complaints, except as docu Resp Reports system reviewed and no additional complaints, except as docu GI Reports system reviewed and no additional complaints, except as docu Reports system reviewed and no additional complaints, except as docu Musc Reports joint pain, Reports joint swelling Skin/Breast Reports system reviewed and no additional complaints, except as docu Neuro Yes system reviewed and no additional complaints, except as docu Psych Reports system reviewed and no additional complaints, except as docu Endo Reports system reviewed and no additional complaints, except as docu Ortho Exam Left Knee Skin/Wound: Yes CDI Assessment AND Plan 1. Other tear of lateral meniscus, current injury, left knee, initial encounter S83.282A Plan Reviewed the pre-operative plans with the patient. Risks and benefits of the procedure were fully explained, including but not limited to infection, neurovascular injury, continued pain, arthritis, stiffness, need for further surgery, re-injury, DVT, PE, general risks of anesthesia, and loss of limb or life. The patient understands all the risks and does wish to proceed with written consent. Follow up post op or sooner if pain, swelling, numbness or associated symptoms, or concerns develop. All questions answered. Patient in agreement of plan. Coding Level of Care Code Off vis,est,level 3 Diagnoses Other tear of lateral meniscus, current injury, left knee, initial encounter S83.282A 07/14/18 1324 <Electronically signed by Tsering Bernard DO> Date Tsering Bernard DO Cosigner Signature: Date (if applicable) CC: ED PROV NOTE Observed: 06/24/2018 Status: COMPLETED Source: [place] 1:39 PM [facility] RE[facility] HNO ID: [id number] Author: Sid Cruz Service: (none) Author Type: Physician Type: ED Provider Notes Filed: 07/21/2018 9:29 PM Note Text: [place] [address] HEALTH INFORMATION MANAGEMENT EMERGENCY DEPARTMENT REPORT Patient: SULLY WALTERSID Rodriguez M.D. [id number] [age] F Status: [facility] ER ED Date of Service: 06/24/18 CHIEF COMPLAINT Reported to be chest pain and shortness of breath. HISTORY OF PRESENT ILLNESS The patient is a 32-year-old white female who presents with chest pain and shortness of breath that started this morning. She states that she is concerned it is related to her bupropion patch. She has taken this off. She is now feeling better. The pain is constant across the chest. Denies any exacerbating factors. Shortness of breath is just there. No dyspnea with exertion, no orthopnea. No cough or sputum production. No leg swelling. PAST MEDICAL HISTORY Hypothyroidism. PAST SURGICAL HISTORY Hysterectomy, , knee surgery, ankle surgery. SOCIAL HISTORY No tobacco use. MEDICATIONS Reviewed. Please see MRO. ALLERGIES Multiple allergies listed on the chart. Please see list. REVIEW OF SYSTEMS General: No fever or chills. Head: No headache. Neck: No neck pain. Back: No back pain. Cardiac: Positive for chest discomfort. No palpitations. Pulmonary: Positive shortness of breath. No cough or sputum production. Abdomen: No abdominal pain, nausea or vomiting. Extremities: No edema, no weakness. Neurologic: No numbness or paresthesias. PHYSICAL EXAMINATION General examination reveals a well-developed, well-nourished female resting comfortably. Vital signs: Blood pressure 165/112, temperature 97.8, pulse 84, respirations 18, pulse oximetry 97% room air. Head normocephalic and atraumatic. Ocular examination reveals pupils to be equal, round and react to light. Sclerae anicteric. Examination of the oropharynx reveals mucous membranes moist. No erythema or exudate, no lesions. Cardiovascular examination reveals normal S1, S2. Regular rate and rhythm. No murmurs, gallops, rubs. Pulmonary examination reveals breath sounds clear to auscultation. No wheezes, rales, rhonchi. Abdomen is soft, positive bowel sounds. No peritoneal signs. Examination of the extremities revealed no cyanosis, clubbing or edema. I did measure both calves, 10 cm below the tibial tuberosity. They are equal in circumference. Neurological examination: The patient alert and oriented x3, no focal deficits appreciated. EMERGENCY DEPARTMENT EVALUATION EKG shows normal sinus rhythm, normal axis, normal intervals. No acute ST-T wave changes. Chest x-ray 2 views shows no acute disease. IMPRESSION Atypical chest pain. PLAN The patient has normal vital signs, normal physical examination. No evidence at this point in time to suggest emergent cardiopulmonary cause for the patient's symptoms. Once again she is also feeling improved since she removed her pain patch. The patient was advised to follow up with the [facility] for whom she receives her primary care. Return otherwise for any new or worsening symptoms, questions or concerns. The patient is discharged in stable condition. <Electronically signed by SID CRUZ M.D.> 07/01/181955 SID CRUZ M.D. cc: SID CRUZ M.D. << Signature on File>> Reported By: SID CRUZ M.D. Signed By: SID CRUZ M.D. Tests performed at: [address] [address] EMERGENCY DEPARTMENT Observed: 06/24/2018 Status: F Source: [place] REPORT 1:39 PM [facility] [place] [address] HEALTH INFORMATION MANAGEMENT EMERGENCY DEPARTMENT REPORT Patient: SULLY WALTER SID CRUZ M.D. [id number] [age] F Status: DEP ER ED Date of Service: 06/24/18 CHIEF COMPLAINT Reported to be chest pain and shortness of breath. HISTORY OF PRESENT ILLNESS The patient is a 32-year-old white female who presents with chest pain and shortness of breath that started this morning. She states that she is concerned it is related to her bupropion patch. She has taken this off. She is now feeling better. The pain is constant across the chest. Denies any exacerbating factors. Shortness of breath is just there. No dyspnea with exertion, no orthopnea. No cough or sputum production. No leg swelling. PAST MEDICAL HISTORY Hypothyroidism. PAST SURGICAL HISTORY Hysterectomy, , knee surgery, ankle surgery. SOCIAL HISTORY No tobacco use. MEDICATIONS Reviewed. Please see MRO. ALLERGIES Multiple allergies listed on the chart. Please see list. REVIEW OF SYSTEMS General: No fever or chills. Head: No headache. Neck: No neck pain. Back: No back pain. Cardiac: Positive for chest discomfort. No palpitations. Pulmonary: Positive shortness of breath. No cough or sputum production. Abdomen: No abdominal pain, nausea or vomiting. Extremities: No edema, no weakness. Neurologic: No numbness or paresthesias. PHYSICAL EXAMINATION General examination reveals a well-developed, well-nourished female resting comfortably. Vital signs: Blood pressure 165/112, temperature 97.8, pulse 84, respirations 18, pulse oximetry 97% room air. Head normocephalic and atraumatic. Ocular examination reveals pupils to be equal, round and react to light. Sclerae anicteric. Examination of the oropharynx reveals mucous membranes moist. No erythema or exudate, no lesions. Cardiovascular examination reveals normal S1, S2. Regular rate and rhythm. No murmurs, gallops, rubs. Pulmonary examination reveals breath sounds clear to auscultation. No wheezes, rales, rhonchi. Abdomen is soft, positive bowel sounds. No peritoneal signs. Examination of the extremities revealed no cyanosis, clubbing or edema. I did measure both calves, 10 cm below the tibial tuberosity. They are equal in circumference. Neurological examination: The patient alert and oriented x3, no focal deficits appreciated. EMERGENCY DEPARTMENT EVALUATION EKG shows normal sinus rhythm, normal axis, normal intervals. No acute ST-T wave changes. Chest x-ray 2 views shows no acute disease. IMPRESSION Atypical chest pain. PLAN The patient has normal vital signs, normal physical examination. No evidence at this point in time to suggest emergent cardiopulmonary cause for the patient's symptoms. Once again she is also feeling improved since she removed her pain patch. The patient was advised to follow up with the [facility] for whom she receives her primary care. Return otherwise for any new or worsening symptoms, questions or concerns. The patient is discharged in stable condition. <Electronically signed by SID CRUZ M.D.> 07/01/18 1956 SID CRUZ M.D. cc: SID CRUZ M.D. << Signature on File>> Reported By: SID CRUZ M.D. Signed By: SID CRUZ M.D. Tests performed at: [address] [address] CHEST (TWO VIEWS) Observed: 06/24/2018 Status: F Source: [facility] - CXR 10:[address] [address] Name: SULLY WALTER Phys: SID CRUZ M.D. : [birth year] Age: 32 Sex: F Acct: [id number] Loc: ED Exam Date: 06/24/18 Status: [facility] ER Radiology No.: [id number] Unit Number: [id number] Exam # Type/Exam [id number] RAD / CHEST (TWO VIEWS) - CXR CHEST PA and lateral: Clinical Indication: Chest pain and shortness of breath. Comparison Study: 04/08/2017.. The heart, donna, mediastinum, and lungs are normal. No mass, infiltrate, pleural fluid, or vascular congestion is seen. The bones are intact. Patient status post cholecystectomy. IMPRESSION: 1. No acute chest process. Professional interpretation provided by [facility], [place] on PC-66. Thank you for this referral. <<Signature on File>> Reported By: TAMELA ARANGO D.O. Signed In [employer] By: TAMELA ARANGO D.O. << Signature on File>> Reported By: TAMELA ARANGO D.O. Signed By: TAMELA ARANGO D.O. Tests performed at: [place] [address] ELECTROCARDIOGRAM Observed: 06/24/2018 Status: F Source: [place] 10:01 [place] [address] HEALTH INFORMATION MANAGEMENT ELECTROCARDIOGRAM REPORT Patient: SULLY WALTER Ordering: SID CRUZ M.D. [id number] [age] F Exam Date: 06/24/18 Report #: [id number] Status: REG ER ED Normal sinus rhythm Normal axis/intervals No acute ST/T changes Physician Squirrel Worker: SID CRUZ M.D. Ventricular Rate EK /min R-R Interval: 733 ms P Wave duration: 115 ms QRS duration: 89 ms P-R interval: 158 ms Q-T interval: 355 ms Q-T interval (corrected): 396 ms Q-T Dispersion: ms P wave axis: 59 deg QRS axis: 44 deg T axis: 39 deg Signed in [employer] 06/24/18 1012 SID CRUZ M.D. cc: << Signature on File>> Reported By: SID CRUZ M.D. Signed By: SID CRUZ M.D. Tests performed at: [place] [id number] ORTHOPEDIC VISIT Observed: 06/20/2018 Status: F Source: [place] RE[place] 11:16 AM [facility] REPOSITORY [facility] Orthopaedics AND Sports Medicine [address] [place] [address] OFFICE VISIT Date of Service: 06/20/18 MR#: [id number] Acct: [id number] Name: SULLY WALTER Rep #: [id number] : 1985 Provider: Tsering Bernard DO Age/Sex: 32/F Location: [facility] Status: Signed Intake Intake Visit Reasons: LEFT KNEE Allergies latex Allergy (Verified 06/20/18 09:40) Itching morphine Allergy (Verified 06/20/18 09:40) Itching promethazine HCl [From Phenergan] Allergy (Verified 06/20/18 09:40) Unknown meperidine HCl [From Demerol] Adverse Reaction (Verified 06/20/18 09:40) Chest tightness Medications lidocaine HCl 5 %-menthol 1 % topical patch patch TOPICAL 06/20/18 [History Confirmed 06/20/18] PFSH Social History Smoking Status: Former smoker HPI LEFT KNEE: Details: SULLY WALTER is a 32 year old F here today for a followup on her left knee MRI. Patient notes that she continues to have knee pain. Her pain is over her anterior knee and posterior knee. Her pain travels into his feliz as well. Patient has gotten knee injections with Dr Schwartz which havent been helpful. Her most recent injection was in April. Patient notes that she has popping, clicking, instability and swelling. Patient has increased pain with all activities. She is not working at this time. Her MRI is here for review. ROS Const Reports system reviewed and no additional complaints, except as docu Eyes Reports system reviewed and no additional complaints, except as docu ENT Reports system reviewed and no additional complaints, except as docu Card Reports system reviewed and no additional complaints, except as docu Resp Reports system reviewed and no additional complaints, except as docu GI Reports system reviewed and no additional complaints, except as docu Reports system reviewed and no additional complaints, except as docu Musc Reports joint pain Skin/Breast Reports system reviewed and no additional complaints, except as docu Neuro Yes system reviewed and no additional complaints, except as docu Psych Reports system reviewed and no additional complaints, except as docu Endo Reports system reviewed and no additional complaints, except as docu Ortho Exam Left Knee Skin/Wound: Yes CDI Contralateral Normal: Yes Swelling: Yes Knee ROM: Yes ROM-Extension -20 to 0, Yes ROM-Flexion 0-140 Examination: Yes Pain with flexion, No Crepitus, Yes med jt line tenderness, Yes Lat jt line tenderness Assessment AND Plan 1. Other tear of lateral meniscus, current injury, left knee, initial encounter S83.282A Plan Explained that her MRI was negative for a new lateral meniscus tear. At this point her treatment should include a diagnostic arthroscopy to closer eval of the meniscus, due to her instability and pain. She should remain on the current work restrictions. We will request repeat knee scope. Follow up when we have an approval or sooner if pain, swelling, numbness or associated symptoms, or concerns develop. All questions answered. Patient in agreement of plan. Coding Level of Care Code Off vis,est,level 3 Diagnoses Other tear of lateral meniscus, current injury, left knee, initial encounter S83.282A 06/20/18 1116 <Electronically signed by Tsering Bernard DO> Date Tsering Bernard DO Cosigner Signature: Date (if applicable) CC: LOWER EXT JOINT ONLY Observed: 05/13/2018 Status: F Source: [place] (ROUTINE) 9:56 AM [facility] REPOSITORY [facility] Imaging Services [address] [place] [id number] Lower Ext Joint Only (Routine) MR#: [id number] Acct: [id number] Name: SULLY WALTER Rep #: [id number] : 1985 F 32 From: Trenton Gilliland MD PCP: Care Physician, No Primary Status: REG CLI Study: Lower Ext Joint Only (Routine) Date of Exam: 05/13/18 Exam# [id number] Ordering Dr: Tsering Bernard DO STUDY: MRI LEFT KNEE REASON FOR EXAM: Left knee pain, injury in April 2016, knee surgery about one year ago. TECHNIQUE: Standardized fat and water weighted pulse sequences were obtained in all 3 orthogonal planes. COMPARISON: Radiographs 01/04/2017. FINDINGS: Normal medial meniscus. Normal hyaline cartilage of the medial femorotibial compartment. Normal medial femoral condyle and tibial plateau. Normal medial collateral ligamentous complex (MCL). Normal distal semimembranosus, gracilis and semitendinosus tendons. There is mild truncation of the free margin of the posterior horn of the lateral meniscus consistent with partial meniscectomy without discrete recurrent lateral meniscal tear. Normal hyaline cartilage of the lateral femorotibial compartment. Normal lateral femoral condyle and tibial plateau. Normal proximal tibiofibular articulation. Normal lateral collateral (fibular) ligament. Normal popliteus tendon. Normal biceps femoris tendon. Normal anterior cruciate ligament (ACL). Normal posterior cruciate ligament (PCL). Normal congruent patellofemoral articulation. Normal hyaline cartilage of the patellofemoral compartment. Normal medial and lateral patellar retinaculum. Normal quadriceps tendon. Normal patellar tendon. There is postoperative scarring in Hoffa's fat pad. There is a small joint effusion. The soft tissues are unremarkable. The otherwise visualized osseous structures are unremarkable. MRI/Lower Ext Joint Only (Routine) IMPRESSION: Partial lateral meniscectomy without demonstrated recurrent lateral meniscal tear. Small joint effusion. Electronically Signed: Trenton Gilliland MD at 11:46 EDT Tel , Service support , CC: No Primary Care Physician; Tsering Bernard DO Textile Machine Operator: Signed THERAPY NT Observed: 04/18/2018 Status: COMPLETED Source: [place] 3:43 PM [facility] REPOSITORY HNO ID: [id number] Author: Provider [facility] Service: (none) Author Type: Physician Type: Therapy (PT/OT/Speech/Resp) Filed: 07/21/2018 7:32 PM Note Text: [place] [address] PHYSICAL THERAPY REPORT Patient: SABAJESSICA KIRK M.D. [id number] 83 32 F Status: REG RCR PT PHYSICAL THERAPY DISCHARGE SUMMARY: DATE:04/18/2018 Dr. Valentin, The patient has completed her physical therapy. As you may recall, you sent this to the [facility] with a diagnosis right ankle joint S83.92xA. The patient was last seen in physical therapy on 03/25/2018. At that time she reported her ankle pain as a 7-8/10. Her treatment has consisted of progressive strengthening, range of motion/stretching, balance/proprioceptive activities, and instruction with a home exercise program. At this time, the patient has not scheduled any further appointments and at this time she is considered discharged from active physical therapy. If I can provide you with any further assistance please do not hesitate to contact me. Thank you for the opportunity to participate with the patient's plan of care. Sincerely, Dictated By: DENNISE MEJIA DPT Signed By: DENNISE MEJIA DPT 04/18/18 1545 << Signature on File>> Reported By: DENNISE MEJIA DPT Signed By: DENNISE MEJIA DPT Tests performed at: [place] [address] PHYSICAL THERAPY Observed: 04/18/2018 Status: F Source: [facility] 3:43 PM [facility] REPOSITORY [facility] [place] [address] PHYSICAL THERAPY REPORT Patient: GAYKAITLYNNSULLY THOMAS L M.D. [id number] [age] F Status: REG RCR PT PHYSICAL THERAPY DISCHARGE SUMMARY: DATE:04/18/2018 Dr. Valentin, The patient has completed her physical therapy. As you may recall, you sent this to the [facility] with a diagnosis right ankle joint S83.92xA. The patient was last seen in physical therapy on 03/25/2018. At that time she reported her ankle pain as a 7-8/10. Her treatment has consisted of progressive strengthening, range of motion/stretching, balance/proprioceptive activities, and instruction with a home exercise program. At this time, the patient has not scheduled any further appointments and at this time she is considered discharged from active physical therapy. If I can provide you with any further assistance please do not hesitate to contact me. Thank you for the opportunity to participate with the patient's plan of care. Sincerely, Dictated By: DENNISE MEJIA DPT Signed By: DENNISE MEJIA DPT 04/18/18 1545 << Signature on File>> Reported By: DENNISE MEJIA DPHeriberto Signed By: DENNIES MEJIA DPT Tests performed at: [address] [address] ED PROV NOTE Observed: 04/04/2018 Status: COMPLETED Source: [place] 6:40 PM [facility] REPOSITORY HNO ID: [id number] Author: Lesia Payne) CHAD Joaquin Service: (none) Author Type: Nurse Practitioner Type: ED Provider Notes Filed: 07/21/2018 7:10 PM Note Text: [place] [address] HEALTH INFORMATION MANAGEMENT EMERGENCY DEPARTMENT REPORT Patient: SULLY WALTER LESIA JOAQUIN as dictated by AYSHA BUCK [id number] [age] F Status: DEP ER ED Date of Service: 04/02/18 CHIEF COMPLAINT Right elbow and hand injury. HISTORY OF PRESENT ILLNESS This is a 32-year-old female that presents to the emergency department with complaints of right elbow, right hand pain after injuring herself on a hammock. She states that somehow she was trying to stop herself from swinging on the hammock and her arm got drug under the hammock. She is complaining of pain on the top of the hand at the base of the index and middle finger and pain just above the elbow. She has some bruising to both places. She denies any decreased sensation. She denies any other complaint. PAST MEDICAL HISTORY Cervical cancer, thyroid cancer. PAST SURGICAL HISTORY Appendectomy, hysterectomy, cholecystectomy, , left knee surgery, right ORIF of ankle, thyroidectomy. SOCIAL HISTORY She is single. Denies drug use. Denies alcohol use. Smokes half-pack per day. ALLERGIES She has multiple allergies, see nursing notes. DAILY MEDICATIONS See nursing notes. REVIEW OF SYSTEMS All systems reviewed with the patient and essentially negative aside from stated HPI. PHYSICAL EXAMINATION Well-developed, well- nourished adult female in no acute distress. Head is atraumatic, normocephalic. Eyes, ears, nose, throat within normal limits. Heart: Regular rate and rhythm. No murmur. Lungs are clear and equal. Abdomen is soft, nontender. Bowel sounds present. Musculoskeletal: Right upper extremity distal sensation intact. Cap refill less than 3 seconds. Radial pulse 2+. There is some ecchymosis at the MCP on the second and third digit. Distal sensation intact. Full range of motion of the second and third digit. No wrist tenderness. No snuffbox tenderness. Forearm is unremarkable. She has pain just above the elbow. Full range of motion at the elbow. There is mild ecchymosis. There is no edema. Shoulder is unremarkable. Clavicle is unremarkable. No other musculoskeletal abnormality. Skin within normal limits. EMERGENCY DEPARTMENT COURSE Plain films obtained of the right elbow and right hand negative for acute bony abnormality. The patient was advised of findings. She was placed in a sling. She was advised not to sleep in the sling. She was advised on shoulder exercises for range of motion, ice, elevation, activity as tolerated. She will be discharged home in good condition. IMPRESSION 1. Right hand contusion. 2. Right elbow contusion. <Electronically signed by AYSHA BUCK> 04/18/18 1407 LESIA JAOQUIN cc: LESIA JOAQUIN; DEBI CAMPUZANO [[facility]] << Signature on File>> Reported By: LESIA JOAQUIN Signed By: LESIA JOAQUIN Tests performed at: [address] [address] ED REPORT Observed: 04/04/2018 Status: F Source: [facility] 6:40 PM [place] [address] HEALTH INFORMATION MANAGEMENT EMERGENCY DEPARTMENT REPORT Patient: SULLY WALTER LESIA JOAQUIN as dictated by AYSHA BUCK [id number] [age] F Status: [facility] ER ED Date of Service: 04/02/18 CHIEF COMPLAINT Right elbow and hand injury. HISTORY OF PRESENT ILLNESS This is a 32-year-old female that presents to the emergency department with complaints of right elbow, right hand pain after injuring herself on a hammock. She states that somehow she was trying to stop herself from swinging on the hammock and her arm got drug under the hammock. She is complaining of pain on the top of the hand at the base of the index and middle finger and pain just above the elbow. She has some bruising to both places. She denies any decreased sensation. She denies any other complaint. PAST MEDICAL HISTORY Cervical cancer, thyroid cancer. PAST SURGICAL HISTORY Appendectomy, hysterectomy, cholecystectomy, , left knee surgery, right ORIF of ankle, thyroidectomy. SOCIAL HISTORY She is single. Denies drug use. Denies alcohol use. Smokes half-pack per day. ALLERGIES She has multiple allergies, see nursing notes. DAILY MEDICATIONS See nursing notes. REVIEW OF SYSTEMS All systems reviewed with the patient and essentially negative aside from stated HPI. PHYSICAL EXAMINATION Well-developed, well- nourished adult female in no acute distress. Head is atraumatic, normocephalic. Eyes, ears, nose, throat within normal limits. Heart: Regular rate and rhythm. No murmur. Lungs are clear and equal. Abdomen is soft, nontender. Bowel sounds present. Musculoskeletal: Right upper extremity distal sensation intact. Cap refill less than 3 seconds. Radial pulse 2+. There is some ecchymosis at the MCP on the second and third digit. Distal sensation intact. Full range of motion of the second and third digit. No wrist tenderness. No snuffbox tenderness. Forearm is unremarkable. She has pain just above the elbow. Full range of motion at the elbow. There is mild ecchymosis. There is no edema. Shoulder is unremarkable. Clavicle is unremarkable. No other musculoskeletal abnormality. Skin within normal limits. EMERGENCY DEPARTMENT COURSE Plain films obtained of the right elbow and right hand negative for acute bony abnormality. The patient was advised of findings. She was placed in a sling. She was advised not to sleep in the sling. She was advised on shoulder exercises for range of motion, ice, elevation, activity as tolerated. She will be discharged home in good condition. IMPRESSION 1. Right hand contusion. 2. Right elbow contusion. <Electronically signed by AYSHA BUCK> 04/18/18 1407 LESIA JOAQUINC cc: LESIA JOAQUINC; DEBI CAMPUZANO [[facility]] << Signature on File>> Reported By: LESIA JOAQUIN Signed By: LESIA JOAQUIN Tests performed at: [place] [address] HAND 3 VIEWS Observed: 04/02/2018 Status: F Source: [facility] 9:00 PM HOSPITAL REPOSITORY [place] [address] Name: SULLY WALTER Phys: ADILENE YEAGER M.D. : [birth year] Age: 32 Sex: F Acct: [id number] Loc: ED Exam Date: 04/02/18 Status: DEP ER Radiology No.: [id number] Unit Number: [id number] Exam # Type/Exam [id number] RAD / HAND 3 VIEWS RT Right hand 3 views Clinical statement: Fell, pain AP, lateral, and oblique view show no fracture or dislocation. Joint spaces are maintained. No soft tissue swelling is seen. Impression: Negative exam. Professional interpretation provided by [facility] [place], [place] on [facility]PC-97. Thank you for this referral. <<Signature on File>> Reported By: JESSICA EDDY M.D. Signed In NovaPro By: JESSICA EDDY M.D. << Signature on File>> Reported By: JESSICA EDDY M.D. Signed By: JESSICA EDDY M.D. Tests performed at: [place] [address] ELBOW MIN 3 VIEWS Observed: 04/02/2018 Status: F Source: [facility] 8:43 PM HOSPITAL REPOSITORY [place] [address] Name: SULLY WALTER Phys: GWEN FORREST M.D. : [birth year] Age: 32 Sex: F Acct: [id number] Loc: ED Exam Date: 04/02/18 Status: DEP ER Radiology No.: [id number] Unit Number: [id number] Exam # Type/Exam [id number] RAD / ELBOW MIN 3 VIEWS RT Right elbow, three views Clinical statement: Injury, pain AP, lateral and oblique views show no fracture or dislocation. Elbow joint is maintained. No displacement of the fat pads or soft tissue swelling is identified. Impression: Negative exam. Professional interpretation provided by [facility] [place], [place] on [facility]PC-97. Thank you for this referral. <<Signature on File>> Reported By: JESSICA EDDY M.D. Signed In NovaPro By: JESSICA EDDY M.D. << Signature on File>> Reported By: JESSICA EDDY M.D. Signed By: JESSICA EDDY M.D. Tests performed at: [place] [address] ORTHOPEDIC VISIT Observed: 03/29/2018 Status: F Source: [place] RE[place] 9:21 AM [facility] REPOSITORY [facility] Orthopaedics AND Sports Medicine [address] [place] [address] OFFICE VISIT Date of Service: 03/25/18 MR#: [id number] Acct: [id number] Name: SULLY WALTER Rep #: [id number] : 1985 Provider: Tsering Bernard DO Age/Sex: 32/F Location: [facility] [place] [place] Status: Signed Intake Intake Visit Reasons: LEFT KNEE Allergies latex Allergy (Verified 01/04/17 18:00) Itching morphine Allergy (Verified 01/04/17 18:00) Itching promethazine HCl [From Phenergan] Allergy (Verified 01/04/17 18:00) Unknown meperidine HCl [From Demerol] Adverse Reaction (Verified 01/04/17 18:39) Chest tightness Medications No Known/Unobtainable [No Known Home Medications] 01/04/17 [History Confirmed 01/04/17] ON LICENSE OF [facility] Social History Smoking Status: Former smoker HPI LEFT KNEE: Details: SULLY WALTER is a 32 year old F here today for ongoing left knee pain. She has history of meniscus debridement and then her knee gave out and she fractured her right ankle with and ORIF 3 months ago in [place]. She sees Dr Schwartz who has tried a couple steroid injections that were only helpful for a couple weeks at a time. She complains of locking when she stands up. Her pain is lateral and anterior with posterior pain when walking and standing. Her episodes of instability are random and not associated with any certain movement. She had a bone scan and post op MRI that shows post surgical changes to lateral meniscus in 05/2016. Her bone scan was complete 08/24/17 showing activity in medial aspect with degenerative changes and uptake in right lateral mal from her fracture that is also her most recent xr with no fracture noted. ROS Musc Reports joint pain, Reports joint swelling, Reports muscle weakness, Reports stiffness, Reports limited joint movement, Reports as per HPI Ortho Exam Left Knee Skin/Wound: Yes CDI Contralateral Normal: Yes Swelling: Yes Homans Sign: No 1+: Effusion Knee ROM: Yes ROM-Extension -20 to 0, Yes ROM-Flexion 0-140 (100), Yes ROM-Passive Flexion 0-140 (140) Examination: Yes med jt line tenderness, Yes Pain with flexion, Yes Yoko's Test, Yes Crepitus Quad Atrophy: Yes Stability: NML: Anterior Drawer Apprehension with Lateral Translation: No Patellar Tilt Normal: No Patella Grind: Yes Assessment AND Plan 1. Sprain of unspecified site of left knee, initial encounter S83.92XA Plan Most of patient's knee pain is from patellofemoral and patient states that this is mostly where her locking occurs as well. she is weak, no signs of meniscal pathology today on exam. again, best to look at with the mieye to evaluate internal derangement/lateral men/ pf joint. Personally reviewed the patient's medical history, medications, surgeries and recent exams if available. Educated the patient on the anatomy of the knee and the benefit of viewing her knee with MiEye. She has instability and weakness with locking and her last MRI is over a year. Her treatment options are PT, MiEye eval or repeat MRI to eval for surgery. She has pain with flexion and ttp med jt line, she has great amount of weakness and crepitus. Her locking is likely from cartilage damage. We will submit for PT and MiEye eval. Follow up with an approval and imaging complete or sooner if pain, swelling, numbness or associated symptoms, or concerns develop. All questions answered. Patient in agreement of plan. 2. Patellar tendinitis of left knee M76.52 3. Other tear of lateral meniscus, current injury, left knee, initial encounter S83.282A 4. Other synovitis and tenosynovitis, left lower leg M65.862 Coding Level of Care Code Off vis,new,level 3 Diagnoses Sprain of unspecified site of left knee, initial encounter S83.92XA Patellar tendinitis of left knee M76.52 Other tear of lateral meniscus, current injury, left knee, initial encounter S83.282A Other synovitis and tenosynovitis, left lower leg M65.862 03/29/18 0921 <Electronically signed by Tsering Bernard DO> Date Tsering Bernard DO Cosigner Signature: Date (if applicable) CC: Tra Schwartz MD THERAPY NT Observed: 03/03/2018 Status: COMPLETED Source: [place] 12:01 PM [facility] REPOSITORY HNO ID: [id number] Author: Provider [facility] Service: (none) Author Type: Physician Type: Therapy (PT/OT/Speech/Resp) Filed: 07/21/2018 6:18 PM Note Text: [place] [address] PHYSICAL THERAPY REPORT Patient: SULLY WALTER JESSICA CARO M.D. [id number] [age] F Status: REG RCR PT PHYSICAL THERAPY INITIAL EVALUATION DATE: 03/02/2018. PHYSICAL THERAPY DIAGNOSES: 1. Right ankle pain. 2. Difficulty with ambulation. 3. Right ankle stiffness. 4. Decreased balance. MEDICAL DIAGNOSIS: 1. S83.92xA. ONSET DATE: 04/26/2016. CHIEF COMPLAINT/FUNCTIONAL LIMITATIONS: 1. Right ankle pain which patient rates as a 5 out of 10 and reports increases with squatting, bending, and steps. PERSONAL FACTORS AND CO-MORBIDITIES: 1. History of a left knee surgery. HISTORY: The patient reports that she injured her ankle when her knee gave out on her and she fell. The patient had surgery on 01/19/2018. The patient works at [employer], but is currently off work. She is currently not performing any exercises specific to her ankle and denies any imaging. Other medical conditions include hypertension. OBJECTIVE FINDINGS: Active range of motion: The patient's left ankle dorsiflexion is +5 degrees and right is -10 degrees. Strength: The patient's right ankle dorsiflexors are 4+/5 with pain upon testing and the left is 5/5. Neurological exam: The patient reported numbness on the dorsum of her foot and at her lateral malleolus. She does report tenderness around her incision and was instructed with desensitization techniques. Gait/ambulation: Decrease in stance time on the right is noted. The patient was able to go up and down steps with proper sequencing. She was able to go up reciprocally and went down with a step to pattern using proper sequencing. Palpation/observation: There was an increase in swelling in the patient's lateral ankle. Joint mobility is within normal limits. Balance: The patient's tandem stance with her right foot in the back was 1 out of 20 seconds, the patient's left was 7 out of 20 seconds. At the end of the session, the patient was instructed with a home exercise program which included progressive strengthening, balance proprioceptive activities and range of motion/stretching which she is able to correctly demonstrate. CLINICAL PRESENTATION: The patient displays a/an evolving clinical presentation with changing characteristics. CLINICAL DECISION MAKING: Moderate complexity based upon the above history, examination and clinical presentation. PROBLEM LIST/FUNCTIONAL LIMITATIONS: 1. Right ankle pain. 2. Right ankle stiffness. 3. Difficulty with ambulation. 4. Decreased strength right ankle musculature. 5. Decreased balance. 6. No formal exercise program. SHORT-TERM GOALS: 1. The patient will be independent with a home exercise program within 1-2 weeks. LONG-TERM GOALS: 1. The patient will report an overall reduction in right knee pain to less than or equal to a 2/10 within 4 to 6 weeks. 2. The patient will improve her right ankle dorsiflexion to greater than or equal to neutral within 4 to 6 weeks. 3. The patient improve the strength of right ankle dorsiflexors to 5/5 within 4 to 6 weeks. 4. The patient will be able to ambulate with an increase in stance time on the right and normalize her gait pattern within 4 to 6 weeks. 5. The patient will be able up and down a flight of steps with reciprocal gait pattern without pain or modification within 4 to 6 weeks. 6. 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 PROGNOSIS/REHAB POTENTIAL: Good for Physical Therapy goals. TREATMENT PLAN: The patient will be seen for progressive strengthening, range of motion/stretching, balance/proprioceptive activities, modalities as needed and instruction with a home exercise program. FREQUENCY/DURATION: Two to 3 times a week for 4 weeks. DISCHARGE PLAN: The patient will be discharged from active physical therapy upon completion of all goals set before him/her, plateauing with physical therapy progress, and/or maximizing his/her current physical therapy prescription. If I can provide you with any further assistance, please do not hesitate to contact me. Thank you for the opportunity to participate with the patient's plan of care. Sincerely, Dictated By: DENNISE MEJIA DPT Signed By: DENNISE MEJIA DPT 03/03/18 1203 << Signature on File>> Reported By: DENNISE MEJIA DPT Signed By: DENNISE MEJIA DPT Tests performed at: [place] [address] PHYSICAL THERAPY Observed: 03/03/2018 Status: F Source: [place] REPORT 12:01 PM [facility] [place] [address] PHYSICAL THERAPY REPORT Patient: SULLY WALTER JSESICA VALENTIN M.D. [id number] F Status: REG RCR PT PHYSICAL THERAPY INITIAL EVALUATION DATE: 03/02/2018. PHYSICAL THERAPY DIAGNOSES: 1. Right ankle pain. 2. Difficulty with ambulation. 3. Right ankle stiffness. 4. Decreased balance. MEDICAL DIAGNOSIS: 1. S83.92xA. ONSET DATE: 04/26/2016. CHIEF COMPLAINT/FUNCTIONAL LIMITATIONS: 1. Right ankle pain which patient rates as a 5 out of 10 and reports increases with squatting, bending, and steps. PERSONAL FACTORS AND CO-MORBIDITIES: 1. History of a left knee surgery. HISTORY: The patient reports that she injured her ankle when her knee gave out on her and she fell. The patient had surgery on 01/19/2018. The patient works at [employer], but is currently off work. She is currently not performing any exercises specific to her ankle and denies any imaging. Other medical conditions include hypertension. OBJECTIVE FINDINGS: Active range of motion: The patient's left ankle dorsiflexion is +5 degrees and right is -10 degrees. Strength: The patient's right ankle dorsiflexors are 4+/5 with pain upon testing and the left is 5/5. Neurological exam: The patient reported numbness on the dorsum of her foot and at her lateral malleolus. She does report tenderness around her incision and was instructed with desensitization techniques. Gait/ambulation: Decrease in stance time on the right is noted. The patient was able to go up and down steps with proper sequencing. She was able to go up reciprocally and went down with a step to pattern using proper sequencing. Palpation/observation: There was an increase in swelling in the patient's lateral ankle. Joint mobility is within normal limits. Balance: The patient's tandem stance with her right foot in the back was 1 out of 20 seconds, the patient's left was 7 out of 20 seconds. At the end of the session, the patient was instructed with a home exercise program which included progressive strengthening, balance proprioceptive activities and range of motion/stretching which she is able to correctly demonstrate. CLINICAL PRESENTATION: The patient displays a/an evolving clinical presentation with changing characteristics. CLINICAL DECISION MAKING: Moderate complexity based upon the above history, examination and clinical presentation. PROBLEM LIST/FUNCTIONAL LIMITATIONS: 1. Right ankle pain. 2. Right ankle stiffness. 3. Difficulty with ambulation. 4. Decreased strength right ankle musculature. 5. Decreased balance. 6. No formal exercise program. SHORT-TERM GOALS: 1. The patient will be independent with a home exercise program within 1-2 weeks. LONG-TERM GOALS: 1. The patient will report an overall reduction in right knee pain to less than or equal to a 2/10 within 4 to 6 weeks. 2. The patient will improve her right ankle dorsiflexion to greater than or equal to neutral within 4 to 6 weeks. 3. The patient improve the strength of right ankle dorsiflexors to 5/5 within 4 to 6 weeks. 4. The patient will be able to ambulate with an increase in stance time on the right and normalize her gait pattern within 4 to 6 weeks. 5. The patient will be able up and down a flight of steps with reciprocal gait pattern without pain or modification within 4 to 6 weeks. 6. 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 PROGNOSIS/REHAB POTENTIAL: Good for Physical Therapy goals. TREATMENT PLAN: The patient will be seen for progressive strengthening, range of motion/stretching, balance/proprioceptive activities, modalities as needed and instruction with a home exercise program. FREQUENCY/DURATION: Two to 3 times a week for 4 weeks. DISCHARGE PLAN: The patient will be discharged from active physical therapy upon completion of all goals set before him/her, plateauing with physical therapy progress, and/or maximizing his/her current physical therapy prescription. If I can provide you with any further assistance, please do not hesitate to contact me. Thank you for the opportunity to participate with the patient's plan of care. Sincerely, Dictated By: DENNISE MEJIA DPT Signed By: DENNISE MEJIA DPT 03/03/18 1203 << Signature on File>> Reported By: DENNISE MEJIA DPT Signed By: DENNISE MEJIA DPT Tests performed at: [address] [address] URINE DRUG SCREEN Collected: 01/06/2018 Status: F Source: [place] (JENI) 10:15 AM [facility] REPOSITORY Order Comment: List of Drugs Taken or Suspected? UNK TYPE CODE TESTS RESULT OUT OF RANGE REFERENCE UNITS LAB L505.0075 TO BE Normal CONFIRMED Result Comment: CONFIRMATORY TESTING FOR ALL POSITIVE URINE DRUG SCREEN RESULTS WILL ONLY BE SENT OUT UPON PHYSICIAN ORDER. VISTA Urine Drug Screen methods provide only preliminary analytical test results. A more specific alternate chemical method must be used in order to obtain a confirmed analytical result. Gas chromatography/mass spectrometery (GC/MS) is the preferred confirmatory method. Clinical consideration and professional judgement should be applied to any drug of abuse test result, particularly when preliminary positive results are used. URINE TCA TESTING MUST BE ORDERED SEPARATELY. USE TEST MNEMONIC: [facility] LAB L505.5005 VISTA UDS PH 5 Normal LAB L505.5015 <1000 ng/mL AMPHETAMINES Normal NEGATIVE LAB L505.5025 < 200 ng/mL BARBITIURATES Normal NEGATIVE LAB L505.5035 < 200 ng/mL BENZODIAZIPINE Normal NEGATIVE LAB L505.5045 < 300 ng/mL COCAINE Normal NEGATIVE LAB L505.5055 < 500 ng/mL ECSTACY Normal NEGATIVE LAB L505.5065 < 300 ng/mL METHADONE Normal NEGATIVE LAB L505.5075 < 300 High ng/mL OPIATES POSITIVE LAB L505.5085 < 25 ng/mL PCP Normal NEGATIVE LAB L505.5095 < 50 ng/mL THC Normal NEGATIVE Performed By: #### L505.5000 #### [facility] [address] [place], [address] MISCELLANEOUS LAB Collected: 01/06/2018 Status: F Source: [place] PROCEDURE 10:15 AM [facility] REPOSITORY Order Comment: Test(s) Ordered: URINE TOXICOLOGY [id number] RUN LOWEST TEST TYPE CODE TESTS RESULT OUT OF RANGE REFERENCE UNITS LAB L801.1541 Normal [facility] LAB TEST Result Comment: TEST RESULT UNITS REF INTERVAL [id number] 6+Oxycodone-Bund Amphetamines, Urine Negative ng/mL Gmnpgc=2477 Amphetamine test includes Amphetamine and Methamphetamine. Barbiturate Negative ng/mL Bngzxq=483 Benzodiazepines Negative ng/mL Ynmnxf=073 Cannabinoids Negative ng/mL Cutoff=20 Cocaine (Metabolite) Negative ng/mL Anhzkf=159 Opiates Negative ng/mL Aipquf=251 Opiate test includes Codeine, Morphine, Hydromorphone, Hydrocodone. Please Note: Confirmation performed by Mass Spectrometry Oxycodone/Oxymorph Positive Nazvce=946 Test includes Oxycodone and Oxymorphone Oxycodone Positive Oxycodone (GC/MS) 7220 ng/mL Hulddf=205 Oxymorphone Positive Oxymorphone (GC/MS) 4350 ng/mL Ldcmgj=734 TESTING PERFORMED AT [facility]. ORIGINAL REPORT ON FILE IN LAB CONTAINS ADDITIONAL TEST SITE INFORMATION. Performed By: #### L801.1541 #### [place] [facility] [address] [place], [address] URINE DRUG SCREEN Collected: 01/04/2018 Status: P Source: [place] (VISTA) 11:27 AM [facility] REPOSITORY Order Comment: Comments: RUN LOWEST TEST List of Drugs Taken or Suspected? UNK TYPE CODE TESTS RESULT OUT OF RANGE REFERENCE UNITS LAB L505.0075 TO BE Normal CONFIRMED Result Comment: CONFIRMATORY TESTING FOR ALL POSITIVE URINE DRUG SCREEN RESULTS WILL ONLY BE SENT OUT UPON PHYSICIAN ORDER. VISTA Urine Drug Screen methods provide only preliminary analytical test results. A more specific alternate chemical method must be used in order to obtain a confirmed analytical result. Gas chromatography/mass spectrometery (GC/MS) is the preferred confirmatory method. Clinical consideration and professional judgement should be applied to any drug of abuse test result, particularly when preliminary positive results are used. URINE TCA TESTING MUST BE ORDERED SEPARATELY. USE TEST MNEMONIC: [facility] Performed By: #### L505.5000 #### [facility] [address] [place], [address] OPERATIVE NO Observed: 12/23/2017 Status: COMPLETED Source: [place] 7:26 AM [facility] [place] REPOSITORY HNO ID: [id number] Author: Jessica Valentin Service: (none) Author Type: Physician Type: Operative Report Filed: 07/21/2018 4:17 PM Note Text: [facility] [place] [address] HEALTH INFORMATION MANAGEMENT OPERATIVE REPORT Patient: SULLY WALTER THOMAS L M.D. [id number] [age] F Status: [facility] Sully Walter M.D. [facility] Acct. No.: [id number] Date of Surgery: 12/21/17 [facility] Acct. No.: [id number] Date of : 1985 Surgeon: JESSICA VALENTIN M.D. Stock Handler: Quique Banuelos Anesthesia: General Pre-operative Diagnosis: Right lateral malleolar fracture, nonunion Post-operative Diagnosis: Same Procedure: Open reduction-internal fixation with locking lateral malleolar plate and screws (27240) Estimated Blood Loss: Minimal Specimen: None Sponge and Needle: Correct Complications: None History: This is a 32 year old female who sustained a lower extremity injury March 2017. Plain x-rays demonstrated incomplete healing of a lateral malleolar fracture. Recommendations were for surgical intervention. A full description of the procedure, as well as risks and benefits were given. Procedure: The patient was taken to the operating room and given adequate general anesthesia. Intravenous antibiotics were used for wound prophylaxis. The lower extremity was prepped and draped in the usual sterile fashion. A tourniquet which had been placed on the proximal thigh was insufflated to 250 mm of mercury. A longitudinal incision was made along the lateral ankle and brought carefully through the subcutaneous tissues. The peroneal tendons were not involved in the surgical field. Minimal subperiosteal stripping was completed at the fracture site. A Synthes 4-hole lateral malleolar plate was contoured along the lateral fibula. Three 3.5 mm cortical screws were placed proximal to the fracture, and three 2.7 mm locking screws were placed distal. Good fixation was gained. AP and lateral images on the C-arm confirmed good alignment of the fracture with no penetration, nor near penetration into the joint surface. The incisions were irrigated with antibiotic solution. Subcutaneous tissues were closed with interrupted 2-0 Vicryl. The skin margins were cleansed with Betadine solution and closed with 3-0 Prolene. A sterile dressing was secured. A short leg synthetic cast was applied. The patient was awakened, extubated and returned to the recovery room in good condition. JESSICA VALENTIN M.D. Note: This dictation was created with the assistance of voice recognition software. Phonetic and/or minor grammatical errors may exist. <Electronically signed by JESSICA VALENTIN M.D.> 12/23/17 0930 JESSICA VALENTIN M.D. cc: JESSICA VALENTIN M.D. << Signature on File>> Reported By: JESSICA VALENTIN M.D. Signed By: JESSICA VALENTIN M.D. Tests performed at: [place] [address] [place], [place] [address] OPERATIVE REPORT Observed: 12/23/2017 Status: F Source: [place] 7:26 [place] [address] HEALTH INFORMATION MANAGEMENT OPERATIVE REPORT Patient: GAYKAITLYNNSULLY L JESSICA VALENTIN M.D. [id number] [age] F Status: [facility] Sully Waltre M.D. [facility] Acct. No.: [id number] Date of Surgery: 12/21/17 [facility] Acct. No.: [id number] Date of : 1985 Surgeon: JESSICA VALENTIN M.D. Stock Handler: Jorden Lambert, P.ARufino Anesthesia: General Pre-operative Diagnosis: Right lateral malleolar fracture, nonunion Post-operative Diagnosis: Same Procedure: Open reduction-internal fixation with locking lateral malleolar plate and screws (60956) Estimated Blood Loss: Minimal Specimen: None Sponge and Needle: Correct Complications: None History: This is a 32 year old female who sustained a lower extremity injury March 2017. Plain x-rays demonstrated incomplete healing of a lateral malleolar fracture. Recommendations were for surgical intervention. A full description of the procedure, as well as risks and benefits were given. Procedure: The patient was taken to the operating room and given adequate general anesthesia. Intravenous antibiotics were used for wound prophylaxis. The lower extremity was prepped and draped in the usual sterile fashion. A tourniquet which had been placed on the proximal thigh was insufflated to 250 mm of mercury. A longitudinal incision was made along the lateral ankle and brought carefully through the subcutaneous tissues. The peroneal tendons were not involved in the surgical field. Minimal subperiosteal stripping was completed at the fracture site. A Synthes 4-hole lateral malleolar plate was contoured along the lateral fibula. Three 3.5 mm cortical screws were placed proximal to the fracture, and three 2.7 mm locking screws were placed distal. Good fixation was gained. AP and lateral images on the C-arm confirmed good alignment of the fracture with no penetration, nor near penetration into the joint surface. The incisions were irrigated with antibiotic solution. Subcutaneous tissues were closed with interrupted 2-0 Vicryl. The skin margins were cleansed with Betadine solution and closed with 3-0 Prolene. A sterile dressing was secured. A short leg synthetic cast was applied. The patient was awakened, extubated and returned to the recovery room in good condition. JESSICA VALENTIN M.D. Note: This dictation was created with the assistance of voice recognition software. Phonetic and/or minor grammatical errors may exist. <Electronically signed by JESSICA VALENTIN M.D.> 12/23/17 0930 JESSICA VALENTIN M.D. cc: JESSICA VALENTIN M.D. << Signature on File>> Reported By: JESSICA VALENTIN M.D. Signed By: JESSICA VALENTIN M.D. Tests performed at: [place] [address] ELECTROCARDIOGRAM Observed: 12/21/2017 Status: F Source: [place] 7:30 [place] [address] HEALTH INFORMATION MANAGEMENT ELECTROCARDIOGRAM REPORT Patient: SULLY WALTER Ordering: LOGAN HOYT M.D. [id number] [age] F Exam Date: 12/21/17 Report #: [id number] Status: REG SDC AMB SINUS RHYTHM NORMAL ECG PREVIOUS TRACIN04/08/17 15.50 Physician Squirrel Worker: CIARRA WATSON M.D. Ventricular Rate EK /min R-R Interval: 829 ms P Wave duration: 121 ms QRS duration: 93 ms P-R interval: 155 ms Q-T interval: 364 ms Q-T interval (corrected): 390 ms Q-T Dispersion: ms P wave axis: 54 deg QRS axis: 36 deg T axis: 27 deg Signed in [place] 12/21/17 0837 CIARRA WATSON M.D. cc: << Signature on File>> Reported By: CIRARA WATSON M.D. Signed By: CIARRA WATSON M.D. Tests performed at: [place] [address] ANKLE 2 VIEWS Observed: 12/21/2017 Status: F Source: [facility] 12:00 AM HOSPITAL REPOSITORY [place] [address] Name: SULLY WALTER Dionisio Phys: JESSICA VALENTIN M.D. : [birth year] Age: 32 Sex: F Acct: [id number] Loc: [facility] Exam Date: 12/21/17 Status: [facility] Radiology No.: [id number] Unit Number: [id number] Exam # Type/Exam [id number] RAD / ANKLE 2 VIEWS RT EXAMINATION: Intraoperative fluoroscopy and AP and lateral views of the RIGHT ankle. CLINICAL INDICATION: Complicated distal fibular fracture COMPARISON: Images obtained at outside physician office 10/27/2017 and 12/20/2017 FINDINGS: 18.9 seconds of fluoroscopy time was used by the operating surgeon during placement of distal fibular plate and multiple compression screws within the distal RIGHT fibula. This buttresses an area of malunion within the distal RIGHT fibula. RIGHT ankle mortise is smoothly marginated. IMPRESSION: 1. Successful reduction and internal fixation of a malunion involving a distal RIGHT fibular fracture site. Professional interpretation provided by [facility], [place] on [id number]. Thank you for this referral. <<Signature on File>> Reported By: TAMELA ARANGO D.O. Signed In NovaPro By: TAMELA ARANGO D.O. << Signature on File>> Reported By: TAMELA ARANGO D.O. Signed By: TAMELA ARANGO D.O. Tests performed at: [address] [address] HISTORY PHYSICAL Observed: 12/20/2017 Status: COMPLETED Source: [place] 5:20 PM [facility] REPOSITORY O ID: [id number] Author: Jessica Valentin Service: (none) Author Type: Physician Type: HANDP Filed: 07/21/2018 4:13 PM Note Text: [place] [address] HEALTH INFORMATION MANAGEMENT SURGICAL HISTORY AND PHYSICAL Patient: SULLY WALTERJESSICA Nichole M.D. [id number] [age] F Status: [facility] Date: 12/20/17 [facility]#: [id number] Name: Sully Walter : 1985 [facility]: F [facility] 32 [id number] Date of Surgery: 12/21/17 Patient returns for follow up of her right ankle. She continues to be symptomatic. Her symptoms have been nearly constant and are sometimes severe. They are worsened with activities. She still notes numbness. No unusual swelling, discoloration nor hypersensitivity to touch. Patient presented after a work-related right ankle injury in April 2017. She was in [place] at that time when her left knee gave out, resulting in a right ankle injury. She was evaluated at an outlying facility while in [place] at that time and placed into a boot orthosis. She then sought follow up treatment of her ankle at [facility] 05/06/2017 with additional x-rays. Follow up with Dr. Conrad was recommended and completed in June 2017. She states she wore a fracture boot for a total of eight weeks, using crutches the first three weeks. She has noted persistent lateral foot and ankle pain as well as numbness and intermittent swelling. There has been no additional injury. No prior history of similar complaints. Meds Prior to Visit: Hydrocodone-Acetaminophen 5-325 mg 1-2 tabs by mouth every 4 hours as needed for pain Levothyroxine Sodium 175 mcg 1 tab by mouth daily Aldactone 50 mg 1 tab by mouth once daily Allergies: Demerol, Phenergan, Morphine, Latex PMH: Problem List: Sprain of wrist and/or hand, S63.592D - Other specified sprain of left wrist, subsequent encounter, Sprain of medial collateral ligament of knee, Current tear of lateral cartilage AND/OR meniscus of knee, Synovitis and tenosynovitis, Patellar tendonitis, Fracture malunion, S82.64xG - Nondisp fx of lateral malleolus of r fibula, 7thG Medical Problems: Uterine Cancer, Thyroid Cancer, Hypertension Surgical Hx: Thyroidectomy Excision Cyst - (12/05/2009) left wrist - Dr. Nunez Total Hysterectomy Section - (2005) Section - (1999) Arthroscopy, Left Knee - (11/03/2016) with partial lateral meniscectomy and saucerization of lateral meniscal tear followed by, as a separate and distinct procedure, additional synovectomy in the patellofemoral joint as well as the lateral compartment including lysis of some adhesions clearly related to the injury process; Dr. Puga Anesthesia Complications: None Assistive Devices: Natural Teeth, Glasses SH: Marital: Legal Status: Never .Lives With: Mother, Children. Personal Habits: Smoking: Patient is a former smoker - (04/25/2012).Alcohol: Denies alcohol use.Drug Use: Denies Drug Use.Exercise Type: Does not exercise. ROS: Const: Reports weight change, but denies loss of appetite, chills, fever, insomnia and night sweats. Eyes: Denies change in vision. ENMT: Denies pain of the ears and ringing in the ears. Denies bloody nose. Denies bleeding gums, hoarseness, difficulty swallowing and toothache. CV: Denies chest pain and irregular heartbeat. Resp: Denies cough and shortness of breath. GI: Denies constipation, diarrhea, nausea, stomach aches, bloody stools and vomiting. : Denies frequency, incontinence and burning with urination. Musculo: Reports right ankle pain. Skin: Denies rash. Neuro: Reports numbness and weakness but denies blackout, headache and seizures. Psych: Denies anxiety and depression. FH: Father: Hypertension. Mother: Arthritis. Sister 1: Hypertension. B/P: 135/90 HR: 84 Exam: Const: Appears healthy and well developed. No signs of apparent distress present. Alert. Patient is well behaved and cooperative. Eyes: EOMI in both eyes. ENMT: Dentition is normal. Resp: Lungs are clear bilaterally. CV: Rate is regular. Rhythm is regular. No heart murmur appreciated. No discoloration of the foot nor ankle. Abdomen: Abdomen is soft and nontender. No abdominal masses palpable. Lymph: No palpable or visible regional lymphadenopathy. Skin: Skin warm and dry with no evidence of unusual rashes or suspicious lesions. Exam: Musculo: Ankles:Exam of the right foot and ankle shows mild swelling with no discoloration. She has moderate tenderness over the lateral malleolus with lesser discomfort medially. Added discomfort is noted along the lateral midfoot. She has moderate restrictions in motion with fair strength. No posterior calf pain. She walks with an antalgic gait. Neuro: Sensation is altered along the lateral ankle and into the foot. She has a positive percussion test just proximal to the lateral malleolar fracture. No hypersensitivity to touch.Coordination: Coordination normal. Dx Studies: Care Plan: Comments : AP, mortise, and lateral right ankle x-rays ordered and reviewed today reveal a stable position. There appears to be some early consolidation. No widening of the mortise nor syndesmosis. Med New : Hydrocodone-Acetaminophen 5-325 mg 1-2 tabs by mouth every 4 hours as needed for pain Xray : Ankle, Complete, Min. Of 3 Views, R Pat Edu : JhamPzhf-Ynzamhsiyed-Xyxjogyme Impression: 1. Nonunion right lateral malleolus. (Neurapraxia). 2. Hypertension. 3. Thyroid carcinoma. 4. Uterine carcinoma. Plan: Open reduction internal fixation right ankle with possible allograft or bone substitute. Negin-operative antibiotics. A full description of the procedure, as well as risks and benefits have been given. This includes the possibility of infection, wound complications, neurovascular compromise, postoperative deep venous thrombosis/pulmonary embolus as well as anesthetic complications including heart attack, stroke, pneumonia or even , along with other unforeseen complications. The potential for incomplete relief of the symptoms has been discussed. All questions and concerns have been addressed. Hydrocodone has been prescribed for postoperative use with appropriate warnings. An OARRS report has been reviewed. JESSICA VALENTIN M.D. Note: This dictation was created with the assistance of voice recognition software. Phonetic and/or minor grammatical errors may exist. <Electronically signed by JESSICA VALENTIN M.D.> JESSICA VALETNIN M.D. cc: JESSICA VALENTIN M.D. << Signature on File>> Reported By: JESSICA VALENTIN M.D. Signed By: JESSICA VALENTIN M.D. Tests performed at: [address] [address] SURGICAL HISTORY AND Observed: 12/20/2017 Status: F Source: [place] PHYSICAL 5:20 PM [facility] [place] [address] HEALTH INFORMATION MANAGEMENT SURGICAL HISTORY AND PHYSICAL Patient: SULLY WALTER JESSICA VALENTIN M.D. [id number] [age] F Status: [facility] AMB Date: 12/20/17 [facility]#: [id number] Name: Sully Walter : 1985 Sex: F [facility] 32 [id number] Date of Surgery: 12/21/17 Patient returns for follow up of her right ankle. She continues to be symptomatic. Her symptoms have been nearly constant and are sometimes severe. They are worsened with activities. She still notes numbness. No unusual swelling, discoloration nor hypersensitivity to touch. Patient presented after a work-related right ankle injury in April 2017. She was in [place] at that time when her left knee gave out, resulting in a right ankle injury. She was evaluated at an outlying facility while in [place] at that time and placed into a boot orthosis. She then sought follow up treatment of her ankle at [facility] 05/06/2017 with additional x-rays. Follow up with Dr. Conrad was recommended and completed in June 2017. She states she wore a fracture boot for a total of eight weeks, using crutches the first three weeks. She has noted persistent lateral foot and ankle pain as well as numbness and intermittent swelling. There has been no additional injury. No prior history of similar complaints. Meds Prior to Visit: Hydrocodone-Acetaminophen 5-325 mg 1-2 tabs by mouth every 4 hours as needed for pain Levothyroxine Sodium 175 mcg 1 tab by mouth daily Aldactone 50 mg 1 tab by mouth once daily Allergies: Demerol, Phenergan, Morphine, Latex PMH: Problem List: Sprain of wrist and/or hand, S63.692D - Other specified sprain of left wrist, subsequent encounter, Sprain of medial collateral ligament of knee, Current tear of lateral cartilage AND/OR meniscus of knee, Synovitis and tenosynovitis, Patellar tendonitis, Fracture malunion, S82.64xG - Nondisp fx of lateral malleolus of r fibula, 7thG Medical Problems: Uterine Cancer, Thyroid Cancer, Hypertension Surgical Hx: Thyroidectomy Excision Cyst - (12/05/2009) left wrist - Dr. Nunez Total Hysterectomy Section - (2005) Section - (1999) Arthroscopy, Left Knee - (11/03/2016) with partial lateral meniscectomy and saucerization of lateral meniscal tear followed by, as a separate and distinct procedure, additional synovectomy in the patellofemoral joint as well as the lateral compartment including lysis of some adhesions clearly related to the injury process; Dr. Puga Anesthesia Complications: None Assistive Devices: Natural Teeth, Glasses SH: Marital: Legal Status: Never .Lives With: Mother, Children. Personal Habits: Smoking: Patient is a former smoker - (04/25/2012).Alcohol: Denies alcohol use.Drug Use: Denies Drug Use.Exercise Type: Does not exercise. ROS: Const: Reports weight change, but denies loss of appetite, chills, fever, insomnia and night sweats. Eyes: Denies change in vision. ENMT: Denies pain of the ears and ringing in the ears. Denies bloody nose. Denies bleeding gums, hoarseness, difficulty swallowing and toothache. CV: Denies chest pain and irregular heartbeat. Resp: Denies cough and shortness of breath. GI: Denies constipation, diarrhea, nausea, stomach aches, bloody stools and vomiting. : Denies frequency, incontinence and burning with urination. Musculo: Reports right ankle pain. Skin: Denies rash. Neuro: Reports numbness and weakness but denies blackout, headache and seizures. Psych: Denies anxiety and depression. FH: Father: Hypertension. Mother: Arthritis. Sister 1: Hypertension. B/P: 135/90 HR: 84 Exam: Const: Appears healthy and well developed. No signs of apparent distress present. Alert. Patient is well behaved and cooperative. Eyes: EOMI in both eyes. ENMT: Dentition is normal. Resp: Lungs are clear bilaterally. CV: Rate is regular. Rhythm is regular. No heart murmur appreciated. No discoloration of the foot nor ankle. Abdomen: Abdomen is soft and nontender. No abdominal masses palpable. Lymph: No palpable or visible regional lymphadenopathy. Skin: Skin warm and dry with no evidence of unusual rashes or suspicious lesions. Exam: Musculo: Ankles:Exam of the right foot and ankle shows mild swelling with no discoloration. She has moderate tenderness over the lateral malleolus with lesser discomfort medially. Added discomfort is noted along the lateral midfoot. She has moderate restrictions in motion with fair strength. No posterior calf pain. She walks with an antalgic gait. Neuro: Sensation is altered along the lateral ankle and into the foot. She has a positive percussion test just proximal to the lateral malleolar fracture. No hypersensitivity to touch.Coordination: Coordination normal. Dx Studies: Care Plan: Comments : AP, mortise, and lateral right ankle x-rays ordered and reviewed today reveal a stable position. There appears to be some early consolidation. No widening of the mortise nor syndesmosis. Med New : Hydrocodone-Acetaminophen 5-325 mg 1-2 tabs by mouth every 4 hours as needed for pain Xray : Ankle, Complete, Min. Of 3 Views, R Pat Edu : RnyuOyyd-Dxozlrdtgju-Fgoaxxiyk Impression: 1. Nonunion right lateral malleolus. (Neurapraxia). 2. Hypertension. 3. Thyroid carcinoma. 4. Uterine carcinoma. Plan: Open reduction internal fixation right ankle with possible allograft or bone substitute. Negin-operative antibiotics. A full description of the procedure, as well as risks and benefits have been given. This includes the possibility of infection, wound complications, neurovascular compromise, postoperative deep venous thrombosis/pulmonary embolus as well as anesthetic complications including heart attack, stroke, pneumonia or even , along with other unforeseen complications. The potential for incomplete relief of the symptoms has been discussed. All questions and concerns have been addressed. Hydrocodone has been prescribed for postoperative use with appropriate warnings. An OARRS report has been reviewed. JESSICA VALENTIN M.D. Note: This dictation was created with the assistance of voice recognition software. Phonetic and/or minor grammatical errors may exist. <Electronically signed by JESSICA VALENTIN M.D.> JESSICA VALENTIN M.D. cc: JESSICA VALENTIN M.D. << Signature on File>> Reported By: JESSICA VALENTIN M.D. Signed By: JESSICA VALENTIN M.D. Tests performed at: [place] [address] [place] [address] ED PROV NOTE Observed: 12/14/2017 Status: COMPLETED Source: [place] [facility] 8:51 PM [facility]INIC MAIN C[facility] REPOSITORY HNO ID: [id number] Author: Betzaida Noe Service: (none) Author Type: Physician Type: ED Provider Notes Filed: 07/21/2018 4:04 PM Note Text: [place] [address] HEALTH INFORMATION MANAGEMENT EMERGENCY DEPARTMENT REPORT Patient: SULLY WALTERBETZAIDA Davis D.O. as dictated by AYSHA MEJIA [id number] [age] F Status: DEP ER ED Date of Service: 12/13/17 DATE OF SERVICE 12/13/2017 HISTORY OF PRESENT ILLNESS This is a 32-year-old female who presents with a sore throat. The patient states she began with a sore throat 4 days ago. She is concerned because she feels like her lymph nodes are swollen. She is having difficulty because of pain swallowing. She states she is having surgery this next week and is concerned if she has an infection. PAST MEDICAL HISTORY Thyroid cancer, hypothyroidism. PAST SURGICAL HISTORY She has had her appendix removed, hysterectomy, cholecystectomy, thyroidectomy, tonsils and adenoids removed. SOCIAL HISTORY No alcohol, drug, or tobacco use. She is single. ALLERGIES Her allergies include latex, Demerol, morphine, Nubain, Phenergan, and IV contrast. HOME MEDICATIONS She is on: 1. Aldactone. 2. Synthroid. 3. Nucynta. REVIEW OF SYSTEMS She states she has had a fever at home. No weakness. No skin rashes. She has had a slight headache. No dizziness. No visual changes. She denies ear pain. She denies sinus pain. Has had clear nasal discharge, a sore throat, swollen glands. No neck pain or stiffness. She states she has a slight cough. No chest pain or palpitations. No abdominal pain, nausea, vomiting, or diarrhea. PHYSICAL EXAMINATION Blood pressure 142/103, temp 98.2, pulse 67, respirations 16. She is 98% on room air. States herd pain is a 7/10. This is a well nourished, well hydrated patient who is alert and active in the room, is in no distress. Her head is atraumatic, normocephalic. There is mild lymphadenopathy bilaterally in the cervical lymph nodes. Posterior oropharynx does show some redness and yellow exudate. Bilateral tympanic membranes are pearly harry in appearance. There is no pain over the sinuses with palpation. Nasal mucosa is pink and moist. There is no neck tenderness, drooling, or meningismus. Skin is pink, warm, dry. No rashes. She is alert. Lungs are clear throughout all lung pineda. Heart has a regular rate and rhythm. Abdomen is soft, flat, nontender to palpation, normoactive bowel sounds. EMERGENCY DEPARTMENT COURSE A rapid strep was negative. She was medicated with ibuprofen. Due to the upcoming surgery, we will place her on antibiotics. She is to increase her fluids, gargle with saltwater, rest, ibuprofen/Tylenol for discomfort. She is to follow up with her family physician. She verbalized understanding of the plan of care and was discharged home in good condition. IMPRESSION Pharyngitis. <Electronically signed by BETZAIDA NOE D.O.> 01/02/18 0633 BETZAIDA NOE D.O. cc: DEBI CHRISTENSENNSamuel ([facility]); BETZAIDA NOE D.O. << Signature on File>> Reported By: BETZAIDA NOE D.O. Signed By: BETZAIDA NOE D.O. Tests performed at: [address] [address] ED REPORT Observed: 12/14/2017 Status: F Source: [facility] 8:51 PM [place] [address] HEALTH INFORMATION MANAGEMENT EMERGENCY DEPARTMENT REPORT Patient: SULLY WALTER BETZAIDA NOE D.O. as dictated by MUKESH GLALEGO, STUFFER-C [id number] [age] F Status: [facility] ER ED Date of Service: 12/13/17 DATE OF SERVICE 12/13/2017 HISTORY OF PRESENT ILLNESS This is a 32-year-old female who presents with a sore throat. The patient states she began with a sore throat 4 days ago. She is concerned because she feels like her lymph nodes are swollen. She is having difficulty because of pain swallowing. She states she is having surgery this next week and is concerned if she has an infection. PAST MEDICAL HISTORY Thyroid cancer, hypothyroidism. PAST SURGICAL HISTORY She has had her appendix removed, hysterectomy, cholecystectomy, thyroidectomy, tonsils and adenoids removed. SOCIAL HISTORY No alcohol, drug, or tobacco use. She is single. ALLERGIES Her allergies include latex, Demerol, morphine, Nubain, Phenergan, and IV contrast. HOME MEDICATIONS She is on: 1. Aldactone. 2. Synthroid. 3. Nucynta. REVIEW OF SYSTEMS She states she has had a fever at home. No weakness. No skin rashes. She has had a slight headache. No dizziness. No visual changes. She denies ear pain. She denies sinus pain. Has had clear nasal discharge, a sore throat, swollen glands. No neck pain or stiffness. She states she has a slight cough. No chest pain or palpitations. No abdominal pain, nausea, vomiting, or diarrhea. PHYSICAL EXAMINATION Blood pressure 142/103, temp 98.2, pulse 67, respirations 16. She is 98% on room air. States herd pain is a 7/10. This is a well nourished, well hydrated patient who is alert and active in the room, is in no distress. Her head is atraumatic, normocephalic. There is mild lymphadenopathy bilaterally in the cervical lymph nodes. Posterior oropharynx does show some redness and yellow exudate. Bilateral tympanic membranes are pearly harry in appearance. There is no pain over the sinuses with palpation. Nasal mucosa is pink and moist. There is no neck tenderness, drooling, or meningismus. Skin is pink, warm, dry. No rashes. She is alert. Lungs are clear throughout all lung pineda. Heart has a regular rate and rhythm. Abdomen is soft, flat, nontender to palpation, normoactive bowel sounds. EMERGENCY DEPARTMENT COURSE A rapid strep was negative. She was medicated with ibuprofen. Due to the upcoming surgery, we will place her on antibiotics. She is to increase her fluids, gargle with saltwater, rest, ibuprofen/Tylenol for discomfort. She is to follow up with her family physician. She verbalized understanding of the plan of care and was discharged home in good condition. IMPRESSION Pharyngitis. <Electronically signed by BETZAIDA NOE D.O.> 01/02/18 0633 BETZAIDA NOE D.O. cc: DEBI CHRISTENSEN ([facility]); BETZAIDA NOE D.O. << Signature on File>> Reported By: BETZAIDA NOE D.O. Signed By: BETZAIDA NOE D.O. Tests performed at: [place] [address] Observed: 12/13/2017 Status: F Source: [facility] THT 11:13 PM HOSPITAL REPOSITORY ORGANISM 1: NO GROUP A BETA STREP ISOLATED Performed By: #### M130.0700 #### [facility] [address] [place] [address] Observed: 12/13/2017 Status: F Source: [facility] STRP SCN 10:56 PM HOSPITAL REPOSITORY STREP SCREEN NEGATIVE - CULTURE TO FOLLOW REFERENCE RANGE NORMAL RESULT IS NEGATIVE. Performed By: #### M130.0600 #### [facility] [address] [place] [address] URINE DRUG SCREEN Collected: 11/22/2017 Status: F Source: [place] [facility]) 2:40 PM [facility] REPOSITORY Order Comment: List of Drugs Taken or Suspected? UNK TYPE CODE TESTS RESULT OUT OF RANGE REFERENCE UNITS LAB L505.0075 TO BE Normal CONFIRMED Result Comment: CONFIRMATORY TESTING FOR ALL POSITIVE URINE DRUG SCREEN RESULTS WILL ONLY BE SENT OUT UPON PHYSICIAN ORDER. VISTA Urine Drug Screen methods provide only preliminary analytical test results. A more specific alternate chemical method must be used in order to obtain a confirmed analytical result. Gas chromatography/mass spectrometery (GC/MS) is the preferred confirmatory method. Clinical consideration and professional judgement should be applied to any drug of abuse test result, particularly when preliminary positive results are used. URINE TCA TESTING MUST BE ORDERED SEPARATELY. USE TEST MNEMONIC: [facility] LAB L505.5005 VISTA UDS PH 5 Normal LAB L505.5015 <1000 ng/mL AMPHETAMINES Normal NEGATIVE LAB L505.5025 < 200 ng/mL BARBITIURATES Normal NEGATIVE LAB L505.5035 < 200 ng/mL BENZODIAZIPINE Normal NEGATIVE LAB L505.5045 < 300 ng/mL COCAINE Normal NEGATIVE LAB L505.5055 < 500 ng/mL ECSTACY Normal NEGATIVE LAB L505.5065 < 300 ng/mL METHADONE Normal NEGATIVE LAB L505.5075 < 300 ng/mL OPIATES Normal NEGATIVE LAB L505.5085 < 25 ng/mL PCP Normal NEGATIVE LAB L505.5095 < 50 ng/mL THC Normal NEGATIVE Performed By: #### L505.5000 #### [facility] [address] [place], [address] MISCELLANEOUS LAB Collected: 11/22/2017 Status: F Source: [place] PROCEDURE 2:40 PM [facility] REPOSITORY Order Comment: Test(s) Ordered: [id number] TYPE CODE TESTS RESULT OUT OF RANGE REFERENCE UNITS LAB L801.1541 Normal [facility] LAB TEST Result Comment: TEST RESULT UNITS REF INTERVAL [id number] 6+Oxycodone-Bund Amphetamines, Urine Negative ng/mL Wnhmks=7617 Amphetamine test includes Amphetamine and Methamphetamine. Barbiturate Negative ng/mL Opoumq=291 Benzodiazepines Negative ng/mL Ocuvjo=082 Cannabinoids Negative ng/mL Cutoff=20 Cocaine (Metabolite) Negative ng/mL Cvlmld=254 Opiates Negative ng/mL Zfufbc=551 Opiate test includes Codeine, Morphine, Hydromorphone, Hydrocodone. Oxycodone/Oxymorphone, Urine Negative ng/mL Bmknnc=977 Test includes Oxycodone and Oxymorphone TESTING PERFORMED AT [facility]. ORIGINAL REPORT ON FILE IN LAB CONTAINS ADDITIONAL TEST SITE INFORMATION. Performed By: #### L801.1541 #### [facility] [address] [place], [address] ED PROV NOTE Observed: 11/20/2017 Status: COMPLETED Source: [facility] 1:41 PM CLINIC MAIN [facility] REPOSITORY HNO ID: [id number] Author: Amrik Fontenot Service: (none) Author Type: Physician Type: ED Provider Notes Filed: 07/21/2018 3:24 PM Note Text: [place] [address] HEALTH INFORMATION MANAGEMENT EMERGENCY DEPARTMENT REPORT Patient: SULLY WALTER,AMRIK Ko D.O. [id number] [age] F Status: DEP ER ED Date of Service: 11/19/17 CHIEF COMPLAINT Tick bite to midback. ALLERGIES The patient has multiple allergies that were reviewed by me. Please see list. SOCIAL HISTORY The patient denies any alcohol, illicit drug use, or tobacco use. PAST SURGICAL HISTORY Hysterectomy. PAST MEDICAL HISTORY Significant for hypertension, hypothyroidism. MEDICATIONS Naprosyn, nystatin, spironolactone, [place], Synthroid, ibuprofen. HISTORY OF PRESENT ILLNESS The patient is a 32-year-old female presenting to the emergency department with chief complaint of tick bite to her right side of her midback. She states that she noticed this today. She states she had her friend dig around at home and pulled it out but thinks that the head might still be in. She denies any fevers or chills. She denies any chest pain. She denies any rashes. She denies any other associated symptoms. She states that this was probably in greater than 3 days as she went camping this past weekend. She denies any other associated symptoms. She denies any joint pain. She states she has never had a tick bite before. She is not allergic to doxycycline. REVIEW OF SYSTEMS A 10-point review of systems was performed and negative except for HPI. PHYSICAL EXAMINATION General: The patient was alert and appeared to be in no acute distress with stable vital signs. Skin is warm, dry. She had an area of her right midthoracic back that was abraded from possible removal of the tick bite at home. Otherwise skin was warm, dry, and intact. There were no rashes. No target lesions. No signs of erythema migrans. She had normal range of motion of her joints. Heart regular rate and rhythm. No murmurs, gallops, or rubs. Lungs were clear to auscultation bilaterally. No wheezes, rhonchi. Abdomen is soft and nontender to palpation. EMERGENCY DEPARTMENT CLINICAL COURSE The patient remained hemodynamically stable, nonseptic, and nontoxic throughout the entire ED course. A closer look at patient's abrasion to her back there was one black speck in the middle. It did not appear to be a tick head. However, the patient's skin was cleaned and 2 mL of 1% lidocaine without epinephrine was used as local anesthesia. I did take some splinter forceps and removed the black speck from the patient's skin. The patient tolerated this procedure well. At this point I do not see any further remnants of any sort of tick in the patient's wound on her back. There are no signs of Lyme disease. I am going to give the patient a prophylactic dose of doxycycline. She has an appointment scheduled with her primary care doctor next week. They are to further evaluate this at this time. IMPRESSION Tick bite. DISPOSITION The patient to be discharged home. At this point we will give her followup and Lyme disease discharge instructions. <Electronically signed by AMRIK FONTENOT D.O.> 11/20/17 1514 AMRIK FONTENOT D.O. cc: AMRIK FONTENOT D.O. << Signature on File>> Reported By: AMRIK FONTENOT D.O. Signed By: AMRIK FONTENOT D.O. Tests performed at: [place] [address] [place], [place] [address] EMERGENCY DEPARTMENT Observed: 11/20/2017 Status: F Source: [place] REPORT 1:41 PM [facility] [place] [address] HEALTH INFORMATION MANAGEMENT EMERGENCY DEPARTMENT REPORT Patient: SULLY WALTERAMRIK Ko D.O. [id number] [age] F Status: [facility] ER ED Date of Service: 11/19/17 CHIEF COMPLAINT Tick bite to midback. ALLERGIES The patient has multiple allergies that were reviewed by me. Please see list. SOCIAL HISTORY The patient denies any alcohol, illicit drug use, or tobacco use. PAST SURGICAL HISTORY Hysterectomy. PAST MEDICAL HISTORY Significant for hypertension, hypothyroidism. MEDICATIONS Naprosyn, nystatin, spironolactone, [place], Synthroid, ibuprofen. HISTORY OF PRESENT ILLNESS The patient is a 32-year-old female presenting to the emergency department with chief complaint of tick bite to her right side of her midback. She states that she noticed this today. She states she had her friend dig around at home and pulled it out but thinks that the head might still be in. She denies any fevers or chills. She denies any chest pain. She denies any rashes. She denies any other associated symptoms. She states that this was probably in greater than 3 days as she went camping this past weekend. She denies any other associated symptoms. She denies any joint pain. She states she has never had a tick bite before. She is not allergic to doxycycline. REVIEW OF SYSTEMS A 10-point review of systems was performed and negative except for HPI. PHYSICAL EXAMINATION General: The patient was alert and appeared to be in no acute distress with stable vital signs. Skin is warm, dry. She had an area of her right midthoracic back that was abraded from possible removal of the tick bite at home. Otherwise skin was warm, dry, and intact. There were no rashes. No target lesions. No signs of erythema migrans. She had normal range of motion of her joints. Heart regular rate and rhythm. No murmurs, gallops, or rubs. Lungs were clear to auscultation bilaterally. No wheezes, rhonchi. Abdomen is soft and nontender to palpation. EMERGENCY DEPARTMENT CLINICAL COURSE The patient remained hemodynamically stable, nonseptic, and nontoxic throughout the entire ED course. A closer look at patient's abrasion to her back there was one black speck in the middle. It did not appear to be a tick head. However, the patient's skin was cleaned and 2 mL of 1% lidocaine without epinephrine was used as local anesthesia. I did take some splinter forceps and removed the black speck from the patient's skin. The patient tolerated this procedure well. At this point I do not see any further remnants of any sort of tick in the patient's wound on her back. There are no signs of Lyme disease. I am going to give the patient a prophylactic dose of doxycycline. She has an appointment scheduled with her primary care doctor next week. They are to further evaluate this at this time. IMPRESSION Tick bite. DISPOSITION The patient to be discharged home. At this point we will give her followup and Lyme disease discharge instructions. <Electronically signed by AMRIK FONTENOT D.O.> 11/20/17 1514 AMRIK FONTENOT D.O. cc: AMRIK FONTENOT D.O. << Signature on File>> Reported By: AMRIK FONTENOT D.O. Signed By: AMRIK FONTENOT D.O. Tests performed at: [place] [id number] ALLERGIES ALLERGIES DATE TYPE / CODE NAME / CODE REACTION SEVERITY SOURCE 07/30/2018 Drug promethazine Unknown Unknown [place] Allergy/416 HCl/[id number](RXN [address]) Repository 07/30/2018 Drug meperidine Chest tightness Unknown [place] Allergy/416 HCl/[id number](RXN [address]) Repository 07/30/2018 Drug morphine/[id number] Itching Unknown [place] Allergy/416 5(RXNORM) [facility] 215291([facility] ED CT) Repository 07/30/2018 Drug latex/[id number](R Itching Unknown [place] Allergy/416 XNORM) [place] 298832([facility] ED CT) Repository ENCOUNTERS ENCOUNTERS ADMIT/DISCHARGE ACCOUNT ADMITTING ENCOUNTER LOCATION SOURCE NUMBER CLASS 10/11/2018 [id number] Ambulatory [place] [address] [facility] ing:MRI Repository 09/22/2018/ [id number] Ambulatory BMSBuilding:B [place] 9 2 [place].[facility] Hospital Repository 08/09/2018 [id number] Ambulatory [place] 1 [facility] Hospital ing:HPRAD Repository 08/09/2018/ [id number] Ambulatory BMSBuilding:B [place] 8 0 [facility] Hospital Repository 08/07/2018/ [id number] Emergency UNIBuilding:E [place] 8 8 D [facility] Hospital Repository 08/05/2018 [id number] Ambulatory [place] [address] [facility] ing:CVS Repository 07/30/2018/ [id number] Emergency Nacho [place] [address] [facility] ing:ED Repository 07/27/2018/ [id number] Ambulatory Nacho [place] [address] [facility] ing:SDCRoom: Repository AC15 07/27/2018/ [id number] Ambulatory BMSBuilding:B [place] 8 5 MS.[facility] Hospital Repository 07/14/2018/ [id number] Ambulatory BMSBuilding:B [place] 8 5 [facility] Hospital Repository 06/24/2018/ [id number] Emergency UNIBuilding:E [place] 8 7 D [facility] Hospital Repository 06/20/2018/ [id number] Ambulatory BMSBuilding:B [place] 8 0 [facility] Hospital Repository 05/13/2018 [id number] Ambulatory [place] 5 [facility] Hospital ing:MRI Repository 04/20/2018 [id number] Ambulatory UNIBuilding:P [place] 3 T [facility] Hospital Repository 04/02/2018/ [id number] Emergency UNIBuilding:E [place] 8 1 D [facility] Hospital Repository 03/25/2018/ [id number] Ambulatory UNIBuilding:P [place] 8 1 [facility] Hospital Repository 03/25/2018/ [id number] Ambulatory BMSBuilding:B [place] 8 9 [facility] Hospital Repository 03/02/2018/ [id number] Ambulatory UNIBuilding:P [place] 8 5 T [facility] Hospital Repository 01/06/2018 [id number] Ambulatory [place] [address] [facility] ing:LAB Repository 01/06/2018 [id number] Ambulatory [place] Nacho [address] [facility] ing:LABSPEC Repository 12/21/2017/ [id number] Ambulatory UNIBuilding:A [place] 8 9 MB [facility] Hospital Repository 12/13/2017/ [id number] Emergency UNIBuilding:E [place] 8 6 D [facility] Hospital Repository 11/22/2017 [id number] Ambulatory [place] [address] [facility] ing:LAB Repository 11/19/2017/ [id number] Emergency UNIBuilding:E [place] [address] 2 D [facility] Repository PAYERS PAYERS ENCOUNTER GUARANTOR PAYER SUBSCRIBER SOURCE 10/11/2018 SULLY Nichole Primary SULLY L [place] [id number] FOURTH Insurance:OB EICHELDOB: [facility] DR NAOMI AGUILAR [facility] [id number], [place] Number: Repository [id number]: [phone]) [id number] [phone] () Date:0143-15-66[address]JBXLMHSH, [place] [address]NC: 10/11/2018 Secondary NOT GIVENUNK [place] Insurance:SELF PAY [facility] Number: Effective Repository Date:2018-09-30 09/22/2018 SULLY Nichole Primary Insurance:[facility] SULLY Dionisio [place] [id number] FOURTH [facility] EICHELDOB: [facility] [address] 4RICA Number: Effective [id number], [place] Date:9724-01-04TN BOX Repository [address]Hrj: [phone] [place] [address] [phone] () 234[address]OS: 09/22/2018 Secondary NOT GIVENUNK Nacho Insurance:SELF PAY [facility] Number: Effective Repository Date:2018-09-14 08/09/2018 SULLY L Primary SULLY L [place] [id number] FOURTH Insurance:[facility] EICHELDOB: [facility] DR NAOMI AGUILAR [facility] [id number], [place] Number: Repository [id number]: [phone] [id number] [phone] (HP) Date:9031-79-24GF [address]XFDRJQHL, [place] [address]RN: 08/09/2018 Secondary NOT GIVENUNK Nacho Insurance:SELF PAY [facility] Number: Effective Repository Date:2018-08-09 08/09/2018 SULLY Nichole Primary Insurance:[facility] SULLYANA Fitchoster [id number] FOURTH [facility] EICHELDOB: [facility] [address] 4RICA Number: Effective [id number], [place] Date:0735-01-89VT BOX Repository [address]Oau: [phone] [place], [place] [phone] (HP) [address]UK: 08/09/2018 Secondary NOT GIVENUNK Nacho Insurance:SELF PAY [facility] Number: Effective Repository Date:2018-08-09 08/07/2018 SULLY Nichole Primary Insurance:[facility] SULLY Nichole Pending Sale To [facility] [id number] [facility] Number: Repository [place], [place] [id number] [phone]: ([phone]) Date: [phone] (HP) 08/05/2018 SULLY L Primary SULLY Dionisio FitchNacho [id number] FOURTH Insurance:OBC EICHELDOB: [facility] [address] 4RICA [facility] [id number], [place] Number: Repository [id number]: [phone] [id number] [phone] (HP) Date:2604-73-83[address]UMFFGPHB, [place] [address]XS: 08/05/2018 Secondary NOT GIVENUNK Nacho Insurance:SELF PAY [facility] Number: Effective Repository Date:2018-08-01 07/30/2018 SULLY L Primary SULLY L [place] [id number] FOURTH Insurance:OBWC EICHELDOB: [facility] [address] 4NEW [facility] [id number], [place] Number: Repository [id number]: [phone]) [id number] [phone] (HP) Date:5305-74-38LJ [address]WXIMBAXA, [place] [address]AC: 07/30/2018 Secondary SULLY L [place] Insurance:[facility] EICHELDOB: [facility] [id number] Hospital Number: Repository [id number] Date:4642-43-87VU [address] [address]UE: 07/30/2018 Tertiary NOT GIVENUNK [place] Insurance:SELF PAY [facility] Number: Effective Repository Date:2018-07-30 07/27/2018 SULLY L Primary SULLY L [place] [id number] FOURTH Insurance:[facility] EICHELDOB: [facility] [address] 4RICA [facility] [id number], [place] Number: Repository [id number]: ([phone] [id number] [phone] Date:7118-60-85ZW [facility] 728845LQVDIGIH, [place] [address]TB: 07/27/2018 Secondary NOT GIVENUNK Nacho Insurance:SELF PAY [facility] Number: Effective Repository Date:2018-07-15 07/27/2018 SULLY L Primary SULLY L [place] [id number] FOURTH Insurance:[facility] EICHELDOB: [facility] [address] [facility] [id number], [place] Number: Repository [id number]: [phone] [id number] [phone] (HP) Date:9314-06-35TR [facility] 486432ZTDLUPTL, [place] [address]DK: 07/27/2018 Secondary NOT GIVENUNK [place] Insurance:SELF PAY [facility] Number: Effective Repository Date:2018-07-27 07/14/2018 SULLY L Primary Insurance:[facility] SULLY L [place] [id number] [facility] EICHELDOB: [facility] [address] [facility] Number: [id number], [place] [id number] Repository [address]Nlz: (284) Date:8597-46-51QI [address] () [address] [place] [address]KN: 07/14/2018 Secondary SULLY L Nacho Insurance:OB EICHELDOB: [facility] [id number] Hospital Number: Repository [id number] Date:3734-10-42WB [address]UJOZSUVG, [place] [address]VW: 07/14/2018 Tertiary NOT GIVENUNK [place] Insurance:SELF PAY [facility] Number: Effective Repository Date:2018-07-05 06/24/2018 SULLY L Primary Insurance:[facility] SULLY L Pending Sale To [facility] [id number] [employer] [address] [address] MEDICAIDPolicy Repository [place], [place] Number: [id number]: (142) [id number] [phone] () Date: 06/20/2018 SULLY L Primary Insurance:[facility] SULLY L [place] [id number] [facility] EICHELDOB: [facility] Number: [id number], [place] [id number] Repository [address]Hke: 330) Date:8677-85-82MS [phone] () [address] [place] [address]AU: 06/20/2018 Secondary SULLY L [place] Insurance:OB EICHELDOB: [facility] [id number] Hospital Number: Repository [id number] Date:5739-77-89FC [address]HDJLOIHOjackson[place], [place] [address]TA: 06/20/2018 Tertiary NOT GIVENUNK [place] Insurance:SELF PAY [facility] Number: Effective Repository Date:2018-06-03 05/13/2018 SULLY L Primary SULLY L Nacho [id number] FAIR Insurance:OB EICHELDOB: [facility] [id number], [place] Number: Repository [address]Iwi: ([phone]) [id number] [phone] (HP) Date:4989-44-21MG [address]CEIYQSKPjacksonville, [place] [address]DZ: 05/13/2018 Secondary SULLY L Nacho Insurance:[facility] EICHELDOB: [facility] [id number] Hospital Number: Repository [id number] Date:5378-57-37GU [address] [place] [address]QZ: 05/13/2018 Tertiary NOT GIVENUNK [place] Insurance:SELF PAY [facility] Number: Effective Repository Date:2018-04-27 04/20/2018 SULLY L Primary Insurance:[facility] SULLY L [place] [facility] [id number] [facility] Number: Repository [place], [place] [id number] [address]Bti: (330) Date: 365 () 04/02/2018 SULLY L Primary Insurance:[facility] SULLY L Pending Sale To [facility] [id number] [employer] [address] MEDICAIDPolicy Repository [place], [place] Number: [address]Awe: (330) [id number] (HP) Date: 03/25/2018 SULLY L Primary Insurance:[facility] SULLY L [address] Number: Repository [place], [place] [id number] [address]Kie: (330) Date: [phone] (HP) 03/25/2018 SULLY L Primary Insurance:[facility] SULLY L [place] [id number] [facility] EICHELDOB: [facility] Number: [id number], [place] [id number] Repository [address]Dhp: ([phone]) Date:0268-27-19LG [phone] () [address] [place] [address]KM: 03/25/2018 Secondary NOT GIVENUNK [place] Insurance:SELF PAY [facility] Number: Effective Repository Date:2018-02-02 03/02/2018 SULLY L Primary Insurance:[facility] SULLY L [place] [address] [facility] Number: Repository [place], [place] [id number]: (330) Date: [phone] (HP) 01/06/2018 Sully L Primary Sully L Nacho [id number] FAIR Insurance:OB EichelDOB: [facility] [id number], [place] Number: Repository [id number]: ([phone]) [id number] [phone] () Date:7776-70-50ZQ [address]FVLQSFQS, [place] [address]JK: 01/06/2018 Secondary Sully L Nacho Insurance:[facility] EichelDOB: [facility] [id number] Hospital Number: Repository [id number] Date:5166-42-95BT [address] [place] [address]QX: 01/06/2018 Tertiary NOT GIVENUNK [place] Insurance:SELF PAY [facility] Hospital Number: Effective Repository Date:2018-01-06 01/06/2018 Sully L Primary Insurance:C Sully L Nacho [id number] [facility] EichelDOB: [facility] Number: [id number], [place] [id number] Repository [address]Dyd: (330) Date:9013-93-45YA [phone] () [address] [place] [address]FG: 01/06/2018 Secondary Sully L Nacho Insurance:[facility] EichelDOB: [facility] [id number] Hospital Number: Repository [id number] Date:2544-25-39GA [address]SQJAZBXQ, [place] [address]ZN: 01/06/2018 Tertiary NOT GIVENUNK Nacho Insurance:SELF PAY [facility] Hospital Number: Effective Repository Date:2018-01-06 12/21/2017 SULLY L Primary Insurance:[facility] SULLY L Pending Sale To [facility] [id number] [facility] Number: Repository [place], [place] [id number]: ([phone]) Date: [phone] (HP) 12/13/2017 SULLY Dionisio Primary Insurance:[facility] SULLY L Pending Sale To [facility] [id number] [employer] E[address] MEDICAIDPolicy Repository [place], [place] Number: [address]Edw: (940) [id number] [phone] (HP) Date: 11/22/2017 Sully Dionisio Primary Sully Dionisio [place] [id number] FAIR Insurance:OB EichelDOB: [facility] [id number], [place] Number: Repository [id number]: ([phone]) [id number] [phone] (HP) Date:3558-99-38FQ [address]BWVQAMSJ, [place] [address]QJ: 11/22/2017 Secondary NOT GIVENUNK Nacho Insurance:SELF PAY [facility] Number: Effective Repository Date:2017-11-22 11/19/2017 SULLY Dionisio Primary Insurance:[facility] SULLY Nichole Pending Sale To [facility] [id number] [employer] E[address] MEDICAIDPolicy Repository [place], [place] Number: [address]Ncr: 330 [id number] [phone] (HP) Date:
== END ==
PROVIDERS: Referring Provider Physician Assistant; Visit Provider Physician Assistant
DX: S83.92XA Sprain of unspecified site of left knee, initial encounter (principal)
CPT/HCPCS: 73721